=== PATIENT | male | born 1945 | race Caucasian/White ===

== ENCOUNTER → 2016-10-12 | Outpatient (CLI) | payer MEDICARE ==
[2016-10-12 12:58] LABS: Blood Urea Nitrogen 32 mg/dL (9-20); Non-African American GFR(MDRD) 55 (>60 ml/min/1.73 sqM)
--- NOTE | 2016-10-12 14:25 | CT ---
EXAMINATION TYPE: CT chest w con DATE OF EXAM: 10/12/2016 COMPARISON: CT chest 01/26/2015 HISTORY: Shortness of breath CT DLP: 733 mGycm Automated exposure control for dose reduction was used. CONTRAST: CT scan of the chest is performed with IV Contrast, patient injected with 100 ml mL of Visipaque 320. FINDINGS: LUNGS: The lungs are stable, there is no change in the nodules identified. There is no pleural effu gabriele or pneumothorax seen. The tracheobronchial tree is patent. MEDIASTINUM: There are no greater than 1 cm hilar or mediastinal lymph nodes. Leads are present withi n the heart. There are coronary artery calcifications. No pericardial effusion is seen. AORTA: No additional significant abnormality is seen. OTHER: Gallstones are noted incidentally. The liver shows low attenuation. Multiple cysts associated with the kidneys. IMPRESSION: Stable benign pulmonary nodules. Coronary artery disease.
== END | disposition home or self-care (01) ==
LOC: RADCTMAIN 11:34
PROVIDERS: ATTEND Internal Medicine Critical Care Medicine
DX: R91.8 Other nonspecific abnormal finding of lung field (principal)
CPT/HCPCS: 82565; 84520; 71260; 36415; Q9967

== ENCOUNTER 2017-05-11 10:58 | Day surgery (SDC) | payer MEDICARE ==
[2017-05-09 11:39] VITALS: BMI 34.7
[~2017-05-11 10:58] MED LIST: ALBUTEROL NEB (CONC) 2.5 MG/0.5 ML INHALATION ONE; ATROPINE SULFATE 0.4 MG/ML 1 ML VIAL IM ONE; LACTATED RINGERS 1,000 ML IV ONE; LACTATED RINGERS 1,000 ML IV SCH; LIDOCAINE 1% 20 ML VIAL (10MG/ML) FOR IV START INTRADERMA PRN; LIDOCAINE 2% (PF) 20 MG/ML 2 ML AMP INHALATION ONE; Pre Op ABX Message 1 EACH MISC MISCELLANE ONE
[2017-05-11 11:18] VITALS: TEMP 98
[2017-05-11 11:31] LABS: Glucose,Whole Blood 174 mg/dL (75-99)
[2017-05-11] MEDS ORDERED: GLYCOPYRROLATE 0.2 MG/ML 2 ML VIAL ONE (11:58)
[2017-05-11] MEDS ORDERED: PROPOFOL 10 MG/ML 20 ML VIAL IV ONE (11:58)
[2017-05-11] MEDS ORDERED: KETAMINE 10 MG/ML 20 ML VIAL ONE (11:58)
[2017-05-11] MEDS ORDERED: LIDOCAINE 1% INJ 10MG/ML (20 ML MDV) ONE (11:58)
[2017-05-11] MEDS ORDERED: LIDOCAINE 2% INJ 20 MG/ML INTRATRACH ONE ×2 (12:05→12:15)
[2017-05-11 13:04] VITALS: BP 110/78; PULSE 79; RESP 18
[2017-05-11 16:48] LABS: Appearance,BF Hazy; Nucleated Cells, Body Fluid 23 /uL; RBC, Body Fluid 11 /uL
[2017-05-11 17:43] LABS: Mononuclear WBC,Body Fluid 81 %; Polynuclear WBC,Body Fluid 19 %; Total Cells Counted,Body Fluid 100
--- NOTE | 2017-05-11 23:07 | PCN ---
PROCEDURE NOTE PROCEDURE: Bronchoscopy airway examination, therapeutic lavage, BAL right middle lobe. PREOP DIAGNOSES: Cough and chest congestion with retained secretions. POSTOP DIAGNOSES: Cough, chest congestion with retained secretions. DESCRIPTION OF PROCEDURE: The patient's procedure was done in room #2 of the [facility]. There was informed consent. There was universal timeout. The CORNER CUTTER MACHINE OPERATOR provided unconscious sedation and General anesthesia. The procedure was done by Dr. Ho and Dr. Rasmussen. After the patient was adequately sedated and being fully monitored, the bronchoscope was inserted in the right nostril. It passed through the right nasopharynx into the oropharynx. The hypopharynx was identified and topicalized. There were some secretions noted in the hypopharynx. After topicalization, the bronchoscope was placed through the glottic opening into the trachea. The trachea appeared normal. The hypopharyngeal structures including anterior commissure, true cords, false cords, arytenoids, piriform sinuses, right and left vallecula and epiglottis all appeared normal. The trachea was normal as mentioned above. Trachea dl was sharp. The right and left mainstem were topicalized. There were some purulent secretions noted throughout. They were noted in the lower lobes bilaterally. The right upper lobe and its 3 segments, right middle lobe and its 2 segments, right lower lobe and its 5 segments, left upper lobe proper and its 2 segments, the lingula and its two segments and the left lower lobe and its 4 segments all had findings of diffuse mild to moderate bronchitis. There were purulent secretions noted throughout. There was no dominant mass or tumor. There was no bleeding. No foreign body. The patient's secretions were suctioned with the assistance of saline. The bronchoscope was wedged into the right middle lobe. The BAL took place. There was no immediate complication. The patient tolerated the procedure well. The bronchoscope was withdrawn. The patient will be recovered. Specimens were sent to the laboratory for analysis. MMODL / IJN: [id number] /
== END 2017-05-11 13:22 | disposition home or self-care (01) ==
LOC: ORWHC2ENDO 10:58
PROVIDERS: ATTEND Internal Medicine Critical Care Medicine
DX: J40 Bronchitis, not specified as acute or chronic (principal); J45.909 Unspecified asthma, uncomplicated; E78.5 Hyperlipidemia, unspecified; E03.8 Other specified hypothyroidism; N40.0 Benign prostatic hyperplasia without lower urinary tract symptoms; M10.9 Gout, unspecified; I10 Essential (primary) hypertension; E11.9 Type 2 diabetes mellitus without complications; Z79.84 Long term (current) use of oral hypoglycemic drugs; G47.30 Sleep apnea, unspecified; Z95.0 Presence of cardiac pacemaker; I49.5 Sick sinus syndrome; Z79.82 Long term (current) use of aspirin; Z79.899 Other long term (current) drug therapy; Z87.891 Personal history of nicotine dependence; Z91.018 Allergy to other foods; Z91.09 Other allergy status, other than to drugs and biological substances
CPT/HCPCS: 94640; 87798 ×3; 87496; 87498; 87529 ×2; 88108; 88305; 89050; 87252; 87502; 87634; 87070; 87205; 87116; 87102; 87077; 87186; 87206; 31624; J2001 ×3; J0461; J2704

== ENCOUNTER → 2018-05-01 | Day surgery (SDC) | payer MEDICARE ==
[2018-04-24 13:41] VITALS: BMI 32.2
[~2018-05-01] MED LIST changes: -ALBUTEROL NEB (CONC) 2.5 MG/0.5 ML INHALATION ONE; +ALLOPURINOL 300 MG TAB PO SCH; +ALPRAZolam 0.25 MG TAB PO PRN; +ALPRAZolam 0.5 MG TAB PO PRN; +ASPIRIN 325 MG TAB PO STA; +ASPIRIN 81 MG PO SCH; +ATORVASTATIN 80 MG TAB PO STA; -ATROPINE SULFATE 0.4 MG/ML 1 ML VIAL IM ONE; +HEPARIN SODIUM 1,000 UN/ML (10ML VL) IV ONE; +HEPARIN SODIUM 1,000 UN/ML (10ML VL) ONE; +IOPAMIDOL-370 125ML BTL INJ ONE; +IOPAMIDOL-370 50ML BTL INJ ONE; -LACTATED RINGERS 1,000 ML IV ONE; -LACTATED RINGERS 1,000 ML IV SCH; +LEVOTHYROXINE 75 MCG TAB PO SCH; -LIDOCAINE 1% 20 ML VIAL (10MG/ML) FOR IV START INTRADERMA PRN; +LIDOCAINE 1% INJ 10MG/ML (20 ML MDV) ONE; +LIDOCAINE 1% INJ 10MG/ML (20 ML MDV) SQ ONE; -LIDOCAINE 2% (PF) 20 MG/ML 2 ML AMP INHALATION ONE; +NITROGLYCERIN SL TABS 0.4 MG TAB SUBLINGUAL PRN; +NON-FORMULARY DRUG (Losartan Potassium [Losartan Potassium] 100 MG) PO SCH; +NON-FORMULARY DRUG (Simvastatin 40 MG) PO SCH; +OXYBUTYNIN CHLORIDE 5 MG TAB PO PRN; -Pre Op ABX Message 1 EACH MISC MISCELLANE ONE; +RX INFO: IV CONTRAST WAS GIVEN 1 EACH MISC MISCELLANE PRN; +SODIUM CHLORIDE 0.9% 1,000 ML IV ONE; +SODIUM CHLORIDE 0.9% 1,000 ML IV SCH; +SODIUM CHLORIDE 0.9% 1,000 ML in EMPTY BAG 1 BAG IV ONE; +VERAPAMIL 2.5 MG/ML 2 ML AMP ONE; +VERAPAMIL SYRINGE (5 MG/10 ML) INTRAARTER ONE; +fentaNYL (PF) 50 MCG/ML 2 ML AMP IVP ONE; +fentaNYL (PF) 50 MCG/ML 2 ML AMP ONE; +glipiZIDE 5 MG TAB PO SCH
[2018-05-01 08:36] LABS: Glucose,Whole Blood 122 mg/dL (75-99)
[2018-05-01 08:52] VITALS: TEMP 98.6
[2018-05-01 12:02] VITALS: RESP 12
--- NOTE | 2018-05-01 12:22 | CC ---
CARDIAC CATHETERIZATION REPORT Mr. Lucas is a 72-year-old male with known history of hypertension, hyperlipidemia, diabetes mellitus, history of permanent pacemaker implantation, who recently has been complaining of symptoms of fatigue and dyspnea, had an abnormal myocardial perfusion imaging. In view of that, recommendation was made regarding cardiac catheterization. The procedure as well as the risks and the complication were discussed with the patient who is in full understanding and agreement. PROCEDURE: Patient was brought to the circus laborer in a fasting semi-sedated state after receiving fentanyl and Benadryl and achieving moderate conscious sedated state. Using Xylocaine anesthesia, in the Seldinger technique, a 6-Burkinan sheath was introduced in the right radial artery. Selective left coronary angiography was performed using 5-Burkinan 3.5 bend left Aretha catheter. Images of the left coronary system were obtained. Attempt to selectively cannulate the right coronary artery using a 5-Burkinan 3.5 bend right Aretha, 4 bend right Aretha and 6-Burkinan David catheter were unsuccessful. Following that, a 5-Burkinan tight pigtail catheter was introduced in the left ventricle and an CUBAN view of the ascending aorta was performed. Following that, non selective images of the right coronary artery using a 5-Burkinan multipurpose non selective images were obtained. Following that, catheter and sheaths were removed. Hemostasis was obtained with deployment of a TR band. There was no immediate complication. The patient was returned to his room in stable condition. FINDINGS: FLUOROSCOPY: There was calcification involving the left main coronary artery and the proximal left anterior descending artery. LEFT MAIN: This is a short size vessel trifurcating left circumflex, left anterior descending artery. Left main coronary artery has no evidence of high-grade stenosis. LEFT ANTERIOR DESCENDING ARTERY: This is a large-sized vessel reaching toward the apex with a wraparound apex segment giving rise to a moderately sized diagonal branch. The left anterior descending artery as well as branches have no evidence of high- grade stenosis, RAMUS INTERMEDIUS: This is a small to moderate sized vessel that has no evidence of high-grade stenosis. LEFT CIRCUMFLEX: This is a dominant vessel bifurcating distally PDA posterolateral segment and branches. The left circumflex proximally has 20% to 30% plaque. The rest of the vessel has no high-grade stenosis. RIGHT CORONARY ARTERY: This vessel appears to be small and nondominant, has a posterior takeoff could not be cannulated selectively, but that has no evidence of high- grade stenosis. LEFT VENTRICULOGRAM: The left ventriculogram was not performed. AORTOGRAM: Aortogram was performed in the CUBAN view and revealed a tricuspid aortic valve with no significant aortic regurgitation. CONCLUSION: 1. Calcified left main and left anterior descending artery. 2. Mild disease in left circumflex. RECOMMENDATION: In view of finding anatomy, I recommend continue medical therapy with aggressive coronary risk modifications that have been initiated. Those findings and recommendation were discussed with the patient his family who are in full understanding and agreement. DURATION OF PROCEDURE: 65 minutes. MMODL / IJN: [id number] / MTDBlaine
[2018-05-01 14:48] VITALS: BP 135/73; PULSE 55
== END | disposition home or self-care (01) ==
LOC: CATHCVL 07:43
PROVIDERS: ATTEND Internal Medicine Interventional Cardiology
DX: R94.39 Abnormal result of other cardiovascular function study (principal); I25.10 Atherosclerotic heart disease of native coronary artery without angina pectoris; I10 Essential (primary) hypertension; E11.9 Type 2 diabetes mellitus without complications; E78.2 Mixed hyperlipidemia; F17.210 Nicotine dependence, cigarettes, uncomplicated; Z95.0 Presence of cardiac pacemaker; Z79.82 Long term (current) use of aspirin; Z79.84 Long term (current) use of oral hypoglycemic drugs; Z79.890 Hormone replacement therapy; Z79.899 Other long term (current) drug therapy; Z82.49 Family history of ischemic heart disease and other diseases of the circulatory system
CPT/HCPCS: 93454; 93567; C1769; C1894; J2001; J3010; J1644; Q9967 ×2

== ENCOUNTER → 2018-05-05 | Outpatient (CLI) | payer MEDICARE ==
[2018-05-05 16:28] LABS: Anion Gap 4.8 mmol/L (4.00-12.00); Calcium 9.8 mg/dL (8.7-10.3); Carbon Dioxide 29.2 mmol/L (21.6-31.8); Potassium 4.9 mmol/L (3.5-5.5)
== END | disposition home or self-care (01) ==
LOC: LABWHC1 08:20
PROVIDERS: ATTEND Internal Medicine Interventional Cardiology
DX: I25.10 Atherosclerotic heart disease of native coronary artery without angina pectoris (principal)
CPT/HCPCS: 36415; 80048

== ENCOUNTER → 2018-08-16 | Outpatient (CLI) | payer MEDICARE ==
--- NOTE | 2018-08-16 16:09 | CT ---
EXAMINATION TYPE: CT lumbar spine wo con DATE OF EXAM: 08/16/2018 COMPARISON: None HISTORY: 72-year-old male Lumbago with sciatica, right side TECHNIQUE: Contiguous axial scanning of the lumbar spine without IV contrast. Coronal and sagittal re constructions performed. CT DLP: 2242.7 mGycm Automated exposure control for dose reduction was used. FINDINGS: Multiple bilateral renal cysts measuring up to at least 4.8 cm. Moderate prostatic calcifications thr oughout the abdominal aorta and iliac arteries. Mild degenerative change at the SI joints. Degenerated levoconvex curvature of the lumbar spine. Vertebral body heights are preserved and alignment is maintained. Mild multilevel degenerative disc disease with bulging discs at multiple levels. Facet arthropathy mid to lower lumbar spine. Mild narrowing of the spinal canal at L3-L4 and L4-L5 from bulging discs. At L4-L5, there is disc osteophyte complex eccentric towards the left. This may abut the traversing l eft L5 nerve root. Along with facet arthropathy, contribute to moderate left neuroforaminal stenosis. . At L3-L4, bulging disc and facet arthropathy contributes to mild right neural foraminal stenosis. IMPRESSION: 1. NO VERTEBRAL COMPRESSION COLLAPSE OR MALALIGNMENT. THERE IS [id number] MULTILEVEL DEGENERATI VE DISC DISEASE AND SCATTERED FACET ARTHROPATHY AND A DEGENERATED LEVOCONVEX SCOLIOTIC CURVATURE. 2. MILD NARROWING OF THE SPINAL CANAL FROM DISC BULGING AT L3-L4 AND L4-L5. 3. AT L4-L5, DISC OSTEOPHYTE COMPLEX ECCENTRIC TOWARDS THE LEFT MAY ABUT THE TRAVERSING LEFT L5 NERVE ROOT. THERE IS ALSO A MODERATE LEFT NEUROFORAMINAL STENOSIS AT THIS LEVEL.
== END | disposition home or self-care (01) ==
LOC: RADCTMAIN 12:20
PROVIDERS: ATTEND Internal Medicine
DX: M48.061 Spinal stenosis, lumbar region without neurogenic claudication (principal); M51.26 Other intervertebral disc displacement, lumbar region; M51.36 Other intervertebral disc degeneration, lumbar region; M46.96 Unspecified inflammatory spondylopathy, lumbar region; M41.86 Other forms of scoliosis, lumbar region
CPT/HCPCS: 72131

== ENCOUNTER → 2019-02-18 | Outpatient (CLI) | payer MEDICARE ==
--- NOTE | 2019-02-18 11:15 | XR ---
EXAM TYPE: LUMBAR SPINE X RAY SERIES COMPARISON: 08/16/2018 HISTORY: Pain TECHNIQUE: 4 views are submitted. FINDINGS: Alignment is anatomic. The pedicles are intact. The transverse processes are intact. There is scol iosis of the spine with multilevel hypertrophic degenerative changes. Diffuse osteopenia. Vascular ca lcifications noted and there is multilevel facet arthropathy. IMPRESSION: 1. Multilevel degenerative disc disease and hypertrophic changes
== END | disposition home or self-care (01) ==
LOC: RADXRMAIN 09:12
PROVIDERS: ATTEND Chiropractor
DX: M51.36 Other intervertebral disc degeneration, lumbar region (principal)
CPT/HCPCS: 72110

== ENCOUNTER → 2020-03-02 | Outpatient (CLI) | payer MEDICARE ==
--- NOTE | 2020-03-02 16:08 | US ---
EXAMINATION TYPE: US kidneys/renal and bladder DATE OF EXAM: 03/02/2020 COMPARISON: NONE CLINICAL HISTORY: 74-year-old male R10.9 LT FLANK PAIN. Left side pain. No hx renal stones. History of prostate cancer with removal. TECHNIQUE: Multiple sonographic images of the kidneys and bladder are obtained. FINDINGS: EXAM MEASUREMENTS: Right Kidney: 12.6 x 5.2 x 6.0 cm Left Kidney: 13.0 x 5.3 x 6.0 cm Right Kidney: Multiple cystic appearing lesions seen throughout kidney. Largest two measured. 1= lat = 4.0 x 4.7 x 4.2 cm. 2- medial = 6.1 x 4.3 x 4.5 cm. Left Kidney: Multiple cystic appearing lesions seen throughout kidney. Largest two measured. 1- lat= 3.1 x 2.7 x 3.0 cm. 2- mid= 3.7 x 3.6 x 4.0 cm. Cortical thinning. No hydronephrosis on either side. Bladder: Under distention limits evaluation. Bilateral Jets not seen IMPRESSION: Numerous bilateral renal cysts measuring up to 6.1 cm on the right and 3.7 cm on the left. No hydrone phrosis.
== END | disposition home or self-care (01) ==
LOC: RADUSWWP 14:05
PROVIDERS: ATTEND Internal Medicine
DX: N28.1 Cyst of kidney, acquired (principal)
CPT/HCPCS: 76770

== ENCOUNTER 2020-11-19 06:10 | Day surgery (SDC) | payer MEDICARE, OTHER ==
[2020-11-17 11:49] VITALS: BMI 29.8
[~2020-11-19 06:10] MED LIST changes: -ALLOPURINOL 300 MG TAB PO SCH; -ALPRAZolam 0.25 MG TAB PO PRN; -ALPRAZolam 0.5 MG TAB PO PRN; -ASPIRIN 325 MG TAB PO STA; -ASPIRIN 81 MG PO SCH; -ATORVASTATIN 80 MG TAB PO STA; -HEPARIN SODIUM 1,000 UN/ML (10ML VL) IV ONE; -HEPARIN SODIUM 1,000 UN/ML (10ML VL) ONE; -IOPAMIDOL-370 125ML BTL INJ ONE; -IOPAMIDOL-370 50ML BTL INJ ONE; +LACTATED RINGERS 1,000 ML IV SCH; -LEVOTHYROXINE 75 MCG TAB PO SCH; +LIDOCAINE 1% (10MG/ML) FOR IV START INTRADERMA PRN; -LIDOCAINE 1% INJ 10MG/ML (20 ML MDV) ONE; -LIDOCAINE 1% INJ 10MG/ML (20 ML MDV) SQ ONE; -NITROGLYCERIN SL TABS 0.4 MG TAB SUBLINGUAL PRN; -NON-FORMULARY DRUG (Losartan Potassium [Losartan Potassium] 100 MG) PO SCH; -NON-FORMULARY DRUG (Simvastatin 40 MG) PO SCH; -OXYBUTYNIN CHLORIDE 5 MG TAB PO PRN; -RX INFO: IV CONTRAST WAS GIVEN 1 EACH MISC MISCELLANE PRN; -SODIUM CHLORIDE 0.9% 1,000 ML IV ONE; -SODIUM CHLORIDE 0.9% 1,000 ML IV SCH; -SODIUM CHLORIDE 0.9% 1,000 ML in EMPTY BAG 1 BAG IV ONE; -VERAPAMIL 2.5 MG/ML 2 ML AMP ONE; -VERAPAMIL SYRINGE (5 MG/10 ML) INTRAARTER ONE; -fentaNYL (PF) 50 MCG/ML 2 ML AMP IVP ONE; -fentaNYL (PF) 50 MCG/ML 2 ML AMP ONE; -glipiZIDE 5 MG TAB PO SCH
[2020-11-19] MEDS ORDERED: LACTATED RINGERS 1,000 ML IV ONE (06:41)
[2020-11-19 06:43] VITALS: TEMP 97.8
[2020-11-19] MEDS ORDERED: PROPOFOL 10 MG/ML 20 ML VIAL IV ONE (07:03)
[2020-11-19 07:29] VITALS: RESP 16
[2020-11-19 07:43] VITALS: BP 114/65; PULSE 50
[2020-11-19 09:21] LABS: HGB 14.4 gm/dL (13.0-17.5); MCH 30.9 pg (25.0-35.0); MCHC 33.4 g/dL (31.0-37.0); MCV 92.5 fL (80.0-100.0); Mean Platelet Volume 9.2; Platelet Count 224 k/uL (150-450); RBC 4.65 m/uL (4.30-5.90); RDW 13.7 % (11.5-15.5); Reticulocyte % 1.2 % (0.5-2.0); WBC 15.7 k/uL (3.8-10.6)
[2020-11-19 09:59] LABS: Band Neutrophils % 1 %; Basophils # (M) 0.16 k/uL (0-0.2); Eosinophils # (M) 0.63 k/uL (0-0.7); Lymphocytes # (M) 2.04 k/uL (1.0-4.8); Metamyelocytes # (M) 0.47 k/uL (0); Metamyelocytes % 3 %; Monocytes # (M) 0.63 k/uL (0-1.0); Myelocytes # (M) 0.16 k/uL (0); Myelocytes % 1 %; Neutrophils % (M) 74 %; Nucleated Red Blood Cells 0 /100 WBC (0-0); Total Cells Counted 200
--- NOTE | 2020-11-19 10:25 | PCN ---
PROCEDURE NOTE DATE OF PROCEDURE: 11/19/2020. PREOP DIAGNOSIS: CML. POSTOP DIAGNOSIS: CML. ANESTHESIA: Local with IV systemic sedation. DETAILS: Utilizing sterile technique, the skin overlying the right iliac crest was prepared with Betadine and alcohol. After adequate sterile draping, systemic sedation and local anesthesia with 1% lidocaine, a size 11 4 inch Jamshidi needle was utilized to access the periosteum with ease. A total of 15 mL of aspirate and 4 mm bone core biopsies were obtained. The patient tolerated the procedure very well. There was no immediate procedure related complication. TOTAL BLOOD LOSS: Less than 1 mL. RESULTS: Pending. MMODL / IJN: [id number] /
== END 2020-11-19 07:57 | disposition home or self-care (01) ==
LOC: OR 06:10
PROVIDERS: ATTEND Internal Medicine Hematology & Oncology
DX: D75.89 Other specified diseases of blood and blood-forming organs (principal); D72.829 Elevated white blood cell count, unspecified; M10.9 Gout, unspecified; E11.9 Type 2 diabetes mellitus without complications; I10 Essential (primary) hypertension; Z86.16 Personal history of COVID-19; M25.60 Stiffness of unspecified joint, not elsewhere classified; E03.9 Hypothyroidism, unspecified; Z85.46 Personal history of malignant neoplasm of prostate; I49.9 Cardiac arrhythmia, unspecified; Z87.891 Personal history of nicotine dependence; Z95.0 Presence of cardiac pacemaker; Z90.79 Acquired absence of other genital organ(s); Z98.890 Other specified postprocedural states; Z80.3 Family history of malignant neoplasm of breast; Z80.49 Family history of malignant neoplasm of other genital organs; Z86.19 Personal history of other infectious and parasitic diseases; Z79.84 Long term (current) use of oral hypoglycemic drugs; Z79.82 Long term (current) use of aspirin; Z79.890 Hormone replacement therapy; Z79.899 Other long term (current) drug therapy
CPT/HCPCS: 85025; 85045; 38222; J2704

== ENCOUNTER → 2021-01-01 | Outpatient (CLI) | payer OTHER | END | disposition home or self-care (01) | LOC: LABWHC1 09:31 | PROVIDERS: ATTEND Nurse Practitioner Adult Health | DX: C92.10 Chronic myeloid leukemia, BCR/ABL-positive, not having achieved remission (principal); I45.10 Unspecified right bundle-branch block; M10.9 Gout, unspecified; E11.9 Type 2 diabetes mellitus without complications; R94.31 Abnormal electrocardiogram [ECG] [EKG]; Z71.3 Dietary counseling and surveillance | CPT/HCPCS: 36415; 93005 ==

== ENCOUNTER → 2022-03-11 | Outpatient (CLI) | payer MEDICARE | END | disposition home or self-care (01) | LOC: LABWHC1 08:57 | PROVIDERS: ATTEND Otolaryngology | DX: J30.89 Other allergic rhinitis (principal) | CPT/HCPCS: 36415; 86001 ==

== ENCOUNTER 2022-05-18 14:28 | Inpatient (IN) | payer MEDICARE ==
[2022-05-18] MEDS ORDERED: ACETAMINOPHEN TAB 500 MG TAB PO STA (14:37)
[2022-05-18] MEDS ORDERED: IBUPROFEN 600 MG TAB PO STA (14:37)
--- NOTE | 2022-05-18 14:41 | ED ---
General Adult HPI - General Chief complaint: Altered Mental Status Stated complaint: ARIELLE,AMS Time Seen by Provider: 05/18/22 14:30 Source: patient, EMS, RN notes reviewed, old records reviewed Mode of arrival: ambulatory Limitations: no limitations - History of Present Illness Initial comments: This is a 76-year-old male who was sent in via EMS because of altered mental status and difficulty breathing. On initial assessment patient had 103.1 fever. Patient has no complete pain however he is altered. According to EMS he started having difficulty breathing a couple days ago was started on antibiotic for bronchitis. However continues to get worse and is now altered where he was not altered before. There is no family member with him so no further history can be obtained at this time - Related Data Home Medications Medication Instructions Recorded Confirmed Aspirin 81 mg PO DAILY 01/31/14 11/17/20 Losartan Potassium 100 mg PO QAM 01/31/14 11/17/20 Simvastatin [Zocor] 40 mg PO HS 01/31/14 11/17/20 allopurinoL [Zyloprim] 300 mg PO DAILY 01/31/14 11/17/20 metFORMIN HCL [Glucophage] 500 mg PO DAILY 01/31/14 11/17/20 Oxybutynin Chloride [Ditropan] 5 mg PO BID PRN 09/12/14 11/17/20 Levothyroxine Sodium [Synthroid] 75 mcg PO QAM 04/24/18 11/17/20 glipiZIDE [Glucotrol] 5 mg PO TID-W/MEALS 04/24/18 11/17/20 Cholecalciferol [Vitamin D3 (25 25 mcg PO DAILY 11/17/20 11/17/20 Mcg = 1000 Iu)] Montelukast Sodium [Singulair] 10 mg PO HS 11/17/20 11/17/20 atenoloL [Tenormin] 25 mg PO QAM 11/17/20 11/17/20 Allergies Allergy/AdvReac Type Severity Reaction Status Date / Time wheat Allergy CONGESTION Verified 05/18/22 14:37 yeast, dried [yeast] Allergy CONGESTION Verified 05/18/22 14:37 mold Allergy Unknown Uncoded 05/18/22 14:37 Review of Systems ROS Statement: Those systems with pertinent positive or pertinent negative responses have been documented in the HPI. ROS Other: All systems not noted in ROS Statement are negative. Past Medical History Past Medical History: Cancer, Diabetes Mellitus, GERD/Reflux, Hyperlipidemia, Hypertension, Osteoarthritis (OA), Prostate Disorder, Sleep Apnea/CPAP/BIPAP, Thyroid Disorder Additional Past Medical History / Comment(s): CML, gout, no longer needs cpap,hx prostate cancer 2007,rinary leakage History of Any Multi-Drug Resistant Organisms: None Reported Past Surgical History: Pacemaker, Prostate Surgery Additional Past Surgical History / Comment(s): uvula surgery for sleep apnea, left cataract,prostatectomy,bladder mesh surgery after prostate surgery Past Anesthesia/Blood Transfusion Reactions: No Reported Reaction Type of Cardiac Device: Permanent Pacemaker Device Placement Date:: 11/20/14 Past Psychological History: No Psychological Hx Reported Smoking Status: Former smoker Past Alcohol Use History: None Reported Past Drug Use History: None Reported - Past Family History Mother Family Medical History: Cancer Additional Family Medical History / Comment(s): breast Sister(s) Family Medical History: Cancer General Exam - General Exam Comments Initial Comments: GENERAL: Patient is well-developed and well-nourished. Patient is nontoxic and well- hydrated and is in mild distress. ENT: Neck is soft and supple. No significant lymphadenopathy is noted. Oropharynx is clear. Moist mucous membranes. Neck has full range of motion without eliciting any pain. EYES: The sclera were anicteric and conjunctiva were pink and moist. Extraocular movements were intact and pupils were equal round and reactive to light. Ey elids were unremarkable. PULMONARY: Poor respiratory effort I do not hear any obvious but he is not taking very deep breaths at this time CARDIOVASCULAR: There is a regular rate and rhythm without any murmurs gallops or rubs. ABDOMEN: Soft and nontender with normal bowel sounds. SKIN: Skin is clear with no lesions or rashes and otherwise unremarkable. NEUROLOGIC: Patient is alert and oriented 2. Cranial nerves II through XII are grossly intact. Motor and sensory are also intact. Normal speech, volume and content. Symmetrical smile. MUSCULOSKELETAL: Normal extremities with adequate strength and full range of motion. No lower extremity swelling or edema. No calf tenderness. LYMPHATICS: No significant lymphadenopathy is noted PSYCHIATRIC: Normal psychiatric evaluation. Limitations: no limitations Course Vital Signs 05/18/22 14:32 Temperature 103.8 F H Pulse Rate 92 Blood Pressure 120/49 O2 Sat by Pulse 99 Oximetry Medical Decision Making - Medical Decision Making EKG was interpreted by myself shows sinus rhythm at 90 bpm CO interval is 224 QRS 146 QT interval is 358 QTC is 406. Patient's EKG shows no ST segment elevation or depression. Patient does have a right bundle branch block. Was pt. sent in by a medical professional or institution (, SMITH, CAMPAIGN ASSISTANT, urgent care, hospital, or care home...) When possible be specific @ -No Did you speak to anyone other than the patient for history (EMS, parent, family, police, friend...)? What history was obtained from this source @ -No Did you review nursing and triage notes (agree or disagree)? Why? @ -I reviewed and agree with nursing and triage notes Were old charts reviewed (outside hosp., previous admission, EMS record, old EKG, old radiological studies, urgent care reports/EKG's, care home records)? Report findings @ - brought some paperwork from a prior hospital visit which I reviewed Differential Diagnosis (chest pain, altered mental status, abdominal pain women, abdominal pain men, vaginal bleeding, weakness, fever, dyspnea, syncope, headache, dizziness, GI bleed, back pain, seizure, CVA, palpatations, mental health, musculoskeletal)? @ -Differential Seizure: Recurrent seizure disorder, febrile seizure, alcohol withdrawal, stimulants, meningitis, encephalitis, intercranial hemorrhage, intracranial tumor, stroke, eclampsia, thyrotoxicosis, hypocalcemia, hyponatremia, hypernatremia, hypomagnesemia, psychogenic, this is not meant to be an all-inclusive list. EKG interpreted by me (3pts min.). @ -As above X-rays interpreted by me (1pt min.). @ -Chest x-ray was interpreted by myself I see no obvious infiltrate CT interpreted by me (1pt min.). @ -None done U/S interpreted by me (1pt. min.). @ -None done What testing was considered but not performed or refused? (CT, X-rays, U/S, labs)? Why? @ -None What meds were considered but not given or refused? Why? @ -None Did you discuss the management of the patient with other professionals (professionals i.e. SMITH Pollock, CAMPAIGN ASSISTANT, lab, RT, psych nurse, healthcare social worker, jig and fixture repairer, teacher, nuclear security officer, employment case manager)? Give summary @ -I spoke with Dr. Connelly he agreed to admit the patient Was smoking cessation discussed for >3mins.? @ -No Was critical care preformed (if so, how long)? @ -No Were there social determinants of health that impacted care today? How? (Homelessness, low income, unemployed, alcoholism, drug addiction, transportation, low edu. Level, literacy, decrease access to med. care, usp, rehab)? @ -No Was there de-escalation of care discussed even if they declined (Discuss DNR or withdrawal of care, Hospice)? DNR status @ -No What co-morbidities impacted this encounter? (DM, HTN, Smoking, COPD, CAD, Cancer, CVA, ARF, Chemo, Hep., AIDS, mental health diagnosis, sleep apnea, morbid obesity)? @ -None Was patient admitted / discharged? Hospital course, mention meds given and route, prescriptions, significant lab abnormalities, going to OR and other pertinent info. @ -Patient came in with 103 fever was altered mentally and was stating he had difficulty breathing. Patient was given Tylenol Motrin for the fever and the was closer to his baseline but according to the not quite at his baseline. Patient stated he felt much better any shortness of breath had improved Undiagnosed new problem with uncertain prognosis? @ -No Drug Therapy requiring intensive monitoring for toxicity (Heparin, Nitro, Insulin, Cardizem)? @ -No Were any procedures done? @ -No Diagnosis/symptom? @ -Dyspnea Acute, or Chronic, or Acute on Chronic? @ -Acute Uncomplicated (without systemic symptoms) or Complicated (systemic symptoms)? @ -Complicated Side effects of treatment? @ -No Exacerbation, Progression, or Severe Exacerbation? @ -No Poses a threat to life or bodily function? How? (Chest pain, [place], [place], pneumonia, PE, COPD, DKA, ARF, appy, cholecystitis, CVA, Diverticulitis, Homicidal, Suicidal, threat to staff... and all critical care pts) @ -No Diagnosis/symptom? @ -Fever of unknown origin Acute, or Chronic, or Acute on Chronic? @ -Acute Uncomplicated (without systemic symptoms) or Complicated (systemic symptoms)? @ -Complicated Side effects of treatment? @ -none Exacerbation, Progression, or Severe Exacerbation] @ -no Poses a threat to life or bodily function? @ -no Diagnosis/symptom? @ -Altered mental status Acute, or Chronic, or Acute on Chronic? @ -Acute Uncomplicated (without systemic symptoms) or Complicated (systemic symptoms)? @ -Complicated Side effects of treatment? @ -none Exacerbation, Progression, or Severe Exacerbation] @ -no Poses a threat to life or bodily function? @ -no Dr. Connelly wanted the patient to start on Levaquin so started on Levaquin and continued on the floor. Dr. Connelly mention that the patient was possibly having some gallbladder issues a few days ago I went back in and evaluated the patient had no abdominal tenderness and denied any pain. - Lab Data Result diagrams: 05/18/22 14:57 05/18/22 14:57 Lab Results 05/18/22 05/18/22 05/18/22 Range/Units 14:57 14:57 14:57 WBC 6.0 (3.8-10.6) k/uL RBC 3.22 L (4.30-5.90) m/uL Hgb 10.1 L (13.0-17.5) gm/dL Hct 30.3 L (39.0-53.0) % MCV 94.2 (80.0-100.0) fL MCH 31.5 (25.0-35.0) pg MCHC 33.5 (31.0-37.0) g/dL RDW 13.2 (11.5-15.5) % Plt Count 167 (150-450) k/uL MPV 8.4 Neutrophils % 93 % Lymphocytes % 5 % Monocytes % 1 % Eosinophils % 1 % Basophils % 0 % Neutrophils # 5.6 (1.3-7.7) k/uL Lymphocytes # 0.3 L (1.0-4.8) k/uL Monocytes # 0.1 (0-1.0) k/uL Eosinophils # 0.0 (0-0.7) k/uL Basophils # 0.0 (0-0.2) k/uL PT 11.0 (9.0-12.0) sec INR 1.0 (<1.2) APTT 21.4 L (22.0-30.0) sec Sodium 138 (137-145) mmol/L Potassium 4.3 (3.5-5.1) mmol/L Chloride 106 (98-107) mmol/L Carbon Dioxide 25 (22-30) mmol/L Anion Gap 7 mmol/L BUN 29 H (9-20) mg/dL Creatinine 2.14 H (0.66-1.25) mg/dL Est GFR (CKD-EPI)AfAm 34 (>60 ml/min/1.73 sqM) Est GFR (CKD-EPI)NonAf 29 (>60 ml/min/1.73 sqM) Glucose 134 H (74-99) mg/dL Plasma Lactic Acid Lonnie (0.7-2.0) mmol/L Calcium 8.6 (8.4-10.2) mg/dL Total Bilirubin 1.1 (0.2-1.3) mg/dL AST 22 (17-59) U/L ALT 17 (4-49) U/L Alkaline Phosphatase 90 (38-126) U/L Total Protein 5.9 L (6.3-8.2) g/dL Albumin 3.3 L (3.5-5.0) g/dL Urine Color Urine Appearance (Clear) Urine pH (5.0-8.0) Ur Specific Llewellyn (1.001-1.035) Urine Protein (Negative) Urine Glucose (UA) (Negative) Urine Ketones (Negative) Urine Blood (Negative) Urine Nitrite (Negative) Urine Bilirubin (Negative) Urine Urobilinogen (<2.0) mg/dL Ur Leukocyte Esterase (Negative) Urine RBC (0-5) /hpf Urine WBC (0-5) /hpf Ur Squamous Epith Cells (0-4) /hpf Amorphous Sediment (None) /hpf Urine Bacteria (None) /hpf Urine Mucus (None) /hpf Influenza Type A (PCR) (Not Detectd) Influenza Type B (PCR) (Not Detectd) RSV (PCR) (Not Detectd) SARS-CoV-2 (PCR) (Not Detectd) 05/18/22 05/18/22 05/18/22 Range/Units 14:57 15:05 16:05 WBC (3.8-10.6) k/uL RBC (4.30-5.90) m/uL Hgb (13.0-17.5) gm/dL Hct (39.0-53.0) % MCV (80.0-100.0) fL MCH (25.0-35.0) pg MCHC (31.0-37.0) g/dL RDW (11.5-15.5) % Plt Count (150-450) k/uL MPV Neutrophils % % Lymphocytes % % Monocytes % % Eosinophils % % Basophils % % Neutrophils # (1.3-7.7) k/uL Lymphocytes # (1.0-4.8) k/uL Monocytes # (0-1.0) k/uL Eosinophils # (0-0.7) k/uL Basophils # (0-0.2) k/uL PT (9.0-12.0) sec INR (<1.2) APTT (22.0-30.0) sec Sodium (137-145) mmol/L Potassium (3.5-5.1) mmol/L Chloride (98-107) mmol/L Carbon Dioxide (22-30) mmol/L Anion Gap mmol/L BUN (9-20) mg/dL Creatinine (0.66-1.25) mg/dL Est GFR (CKD-EPI)AfAm (>60 ml/min/1.73 sqM) Est GFR (CKD-EPI)NonAf (>60 ml/min/1.73 sqM) Glucose (74-99) mg/dL Plasma Lactic Acid Lonnie 2.5 H* (0.7-2.0) mmol/L Calcium (8.4-10.2) mg/dL Total Bilirubin (0.2-1.3) mg/dL AST (17-59) U/L ALT (4-49) U/L Alkaline Phosphatase (38-126) U/L Total Protein (6.3-8.2) g/dL Albumin (3.5-5.0) g/dL Urine Color Yellow Urine Appearance Cloudy (Clear) Urine pH 5.5 (5.0-8.0) Ur Specific Llewellyn 1.024 (1.001-1.035) Urine Protein 2+ H (Negative) Urine Glucose (UA) Negative (Negative) Urine Ketones Negative (Negative) Urine Blood Small H (Negative) Urine Nitrite Negative (Negative) Urine Bilirubin Negative (Negative) Urine Urobilinogen 3.0 (<2.0) mg/dL Ur Leukocyte Esterase Small H (Negative) Urine RBC 5 (0-5) /hpf Urine WBC 4 (0-5) /hpf Ur Squamous Epith Cells 2 (0-4) /hpf Amorphous Sediment Moderate H (None) /hpf Urine Bacteria Rare H (None) /hpf Urine Mucus Rare H (None) /hpf Influenza Type A (PCR) Not Detected (Not Detectd) Influenza Type B (PCR) Not Detected (Not Detectd) RSV (PCR) Not Detected (Not Detectd) SARS-CoV-2 (PCR) Not Detected (Not Detectd) Disposition Clinical Impression: Dyspnea, Fever of unknown origin, Altered mental status Disposition: ADMITTED IP TO THIS HOSP Referrals: River Connelly MD [Primary Care Provider] - 1-2 days Time of Disposition: 16:57
[2022-05-18] MEDS: SODIUM CHLORIDE 0.9% 500 ML 500 ML IV SCH ×3 (15:07→20:11)
[2022-05-18 15:16] LABS: Basophils % (A) 0 %; Eosinophils % (A) 1 %; HCT 30.3 % (39.0-53.0); HGB 10.1 gm/dL (13.0-17.5); Lymphocytes # (A) 0.3 k/uL (1.0-4.8); Lymphocytes % (A) 5 %; MCH 31.5 pg (25.0-35.0); MCHC 33.5 g/dL (31.0-37.0); MCV 94.2 fL (80.0-100.0); Mean Platelet Volume 8.4; Monocytes # (A) 0.1 k/uL (0-1.0); Monocytes % (A) 1 %; Neutrophils # (A) 5.6 k/uL (1.3-7.7); Neutrophils % (A) 93 %; Platelet Count 167 k/uL (150-450); RBC 3.22 m/uL (4.30-5.90); RDW 13.2 % (11.5-15.5)
[2022-05-18 15:34] LABS: Albumin 3.3 g/dL (3.5-5.0); Calcium 8.6 mg/dL (8.4-10.2); Potassium 4.3 mmol/L (3.5-5.1); Total Bilirubin 1.1 mg/dL (0.2-1.3); Total Protein 5.9 g/dL (6.3-8.2)
--- NOTE | 2022-05-18 15:45 | XR ---
EXAMINATION TYPE: XR chest 2V DATE OF EXAM: 05/18/2022 3:20 PM COMPARISON: Chest radiographs from 12/02/2014 TECHNIQUE: XR chest 2V Frontal and lateral views of the chest. CLINICAL INDICATION:Male, 76 years old with history of Fever; FINDINGS: Lungs/Pleura: Low lung volumes are present. There is no evidence of pleural effusion, focal consolida tion, or pneumothorax. Pulmonary vascularity: Unremarkable. Heart/mediastinum: Cardiomediastinal silhouette is unremarkable. Two lead cardiac conduction device o verlying the left hemithorax with lead tips projecting over the right ventricle and right atrium. Musculoskeletal: No acute osseous pathology. IMPRESSION: Low lung volumes with a generalized hazy appearance which could represent atelectasis versus pulmonar y edema correlate with serum BNP. Expiratory rotated exam.
[2022-05-18 16:18] LABS: Partial Thromboplastin Time 21.4 sec (22.0-30.0)
[2022-05-18 16:26] LABS: Amorphous Sediment,Urine Moderate /hpf; Appearance,Urine Cloudy (Clear); Bacteria,Urine Rare /hpf; Bilirubin,Urine Negative (Negative); Blood,Urine Small (Negative); Color,Urine Yellow; Glucose,Urine (UA) Negative (Negative); Ketones,Urine Negative (Negative); Leukocyte Esterase,Urine Small (Negative); Mucus,Urine Rare /hpf; Nitrite,Urine Negative (Negative); PH, Urine 5.5 (5.0-8.0); Protein,Urine 2+ (Negative); RBC,Urine 5 /hpf (0-5); Specific Gravity,Urine 1.024 (1.001-1.035); Squamous Epithelial Cell,Urine 2 /hpf (0-4); WBC,Urine 4 /hpf (0-5)
[2022-05-18] MEDS ORDERED: SODIUM CHLORIDE 0.9% 1,000 ML IV ONE (16:57)
[2022-05-18] MEDS ORDERED: LEVOFLOXACIN 750MG-D5W PMX 750 MG in DEXTROSE/WATER 1 150ML.BAG IVPB STA (16:59)
[2022-05-18] MEDS ORDERED: SODIUM CHLORIDE 0.9% 500 ML 500 ML IV ONE (22:56)
[2022-05-18] MEDS: PIPERACILLIN-TAZOBACTAM 3.375 GM in SODIUM CHLORIDE 0.9% 100 ML IVPB SCH (23:32)
[2022-05-19] MEDS ORDERED: DEXTROSE 50% SYRINGE 50 ML IVP PRN ×2 (04:07)
[2022-05-19 06:23] LABS: Glucose,Whole Blood 92 mg/dL (70-110)
[2022-05-19] MEDS: INSULIN ASPART (NovoLOG) 100 UNIT/ML VIAL SQ SCH ×4 (06:24→21:24)
[2022-05-19] MEDS: LEVOTHYROXINE 88 MCG TAB PO SCH (06:31)
[2022-05-19] MEDS ORDERED: glipiZIDE 5 MG TAB PO SCH (07:30)
[2022-05-19] MEDS: LOSARTAN 50 MG TAB PO SCH (08:32)
[2022-05-19] MEDS: atenoloL 25 MG TAB PO SCH (08:32)
[2022-05-19] MEDS: ASPIRIN 81 MG PO SCH (08:49)
[2022-05-19] MEDS: OXYBUTYNIN CHLORIDE 5 MG TAB PO SCH ×3 (08:50→21:23)
[2022-05-19] MEDS: PIPERACILLIN-TAZOBACTAM 3.375 GM in SODIUM CHLORIDE 0.9% 100 ML IVPB SCH ×3 (08:50→23:37)
--- NOTE | 2022-05-19 08:52 | P.HPIM ---
History of Present Illness H&P Date: 05/19/22 Vinicio Lucas, is a 76 year old male who presented to [facility] with a chief complaint of fever and difficulty breathing, patient was recently seen at [facility] emergency room at that time he was complaining of abdominal pain computed tomography scan of the abdomen and pelvis was done and revealed evidence of cholelithiasis, otherwise no acute findings he was discharged home from the emergency room. He was evaluated in the emergency room vital examination on presentation revealed a temperature of 103.8 pulse 92 respiration 18 blood pressure 120/49 pulse ox 99% on 15 L nonrebreather mask, subsequently blood pressure dropped to 75/40 Laboratory data revealed a white blood count of 6.0 hemoglobin 10.1 platelet count 167 BUN 29 creatinine 2.14 urine analysis revealed small leukocyte esterase, negative nitrite with 4 white blood cells in high power field, infl uenza A and B RSV and COVID-19 PCR were all negative Testing in the emergency room revealed EKG done in the emergency room revealed sinus rhythm with first-degree AV block and right bundle branch block, chest x- ray done in emergency room revealed low lung volumes with generalized hazy appearance that would represent atelectasis versus pulmonary edema. Patient was admitted to medical floor for further evaluation and treatment, he was started on IV antibiotic in the emergency room, he was given IV bolus due to hypotension. Past medical history is significant for history of hypertension, history of hyperlipidemia, history of [id number] diabetes mellitus, history of gout, history of prostate cancer, history of obstructive sleep apnea, history of cardiac arrhythmia was previous history of pacemaker placement, history of gastroesophageal reflux disease, and previous history of smoking On review of systems patient at this time is alert and oriented 3 in no apparent distress his fever has subsided there is no chills no headache or dizziness he is complaining of cough and complaining of shortness of breath with any activity he denies any chest pain there is no nausea or vomiting no abdominal pain no diarrhea no blood in the stools there is no burning with urination his urine is darker no frequency or urgency and no hematuria. Past Medical History Past Medical History: Cancer, Diabetes Mellitus, GERD/Reflux, Hyperlipidemia, Hypertension, Osteoarthritis (OA), Prostate Disorder, Sleep Apnea/CPAP/BIPAP, Thyroid Disorder Additional Past Medical History / Comment(s): CML, gout, no longer needs cpap,hx prostate cancer 2007,rinary leakage History of Any Multi-Drug Resistant Organisms: None Reported Past Surgical History: Pacemaker, Prostate Surgery Additional Past Surgical History / Comment(s): uvula surgery for sleep apnea, left cataract,prostatectomy,bladder mesh surgery after prostate surgery Past Anesthesia/Blood Transfusion Reactions: No Reported Reaction Type of Cardiac Device: Permanent Pacemaker Device Placement Date:: 11/20/14 Past Psychological History: No Psychological Hx Reported Smoking Status: Former smoker Past Alcohol Use History: None Reported Additional Past Alcohol Use History / Comment(s): quit smoking 1979, smoked for 15 yrs Past Drug Use History: None Reported - Past Family History Mother Family Medical History: Cancer Additional Family Medical History / Comment(s): breast Sister(s) Family Medical History: Cancer Medications and Allergies Home Medications Medication Instructions Recorded Confirmed Type Aspirin 81 mg PO DAILY 01/31/14 05/18/22 History Losartan Potassium 100 mg PO DAILY 01/31/14 05/18/22 History allopurinoL [Zyloprim] 300 mg PO DAILY 01/31/14 05/18/22 History Oxybutynin Chloride [Ditropan] 5 mg PO TID 09/12/14 05/18/22 History glipiZIDE [Glucotrol] 5 mg PO TID-W/MEALS 04/24/18 05/18/22 History Cholecalciferol [Vitamin D3 (25 50 mcg PO HS 11/17/20 05/18/22 History Mcg = 1000 Iu)] atenoloL [Tenormin] 25 mg PO DAILY 11/17/20 05/18/22 History Cefdinir [Omnicef] 300 mg PO BID 05/18/22 05/18/22 History Cetirizine HCl [Zyrtec] 10 mg PO HS 05/18/22 05/18/22 History HYDROcodone/APAP 7.5-325MG [Ventress 1 tab PO Q6HR PRN 05/18/22 05/18/22 History 7.5-325] Imatinib Mesylate [Gleevec] 300 mg PO DAILY 05/18/22 05/18/22 History Levothyroxine Sodium [Synthroid] 88 mcg PO DAILY 05/18/22 05/18/22 History Omeprazole [PriLOSEC] 20 mg PO HS 05/18/22 05/18/22 History Ondansetron Odt [Zofran Odt] 4 mg PO Q6H PRN 05/18/22 05/18/22 History Pantoprazole Sodium [Protonix] 40 mg PO DAILY 05/18/22 05/18/22 History Allergies Allergy/AdvReac Type Severity Reaction Status Date / Time wheat Allergy CONGESTION Verified 05/18/22 17:27 yeast, dried [yeast] Allergy CONGESTION Verified 05/18/22 17:27 mold Allergy Unknown Uncoded 05/18/22 17:27 Physical Exam Vitals: Vital Signs Temp Pulse Pulse Resp BP BP Pulse Ox 05/19/22 06:42 63 19 101/58 99 05/19/22 04:00 98.2 F 54 L 19 91/48 98 05/18/22 23:28 97.3 F L 52 L 90/55 100 05/18/22 23:19 98.3 F 56 L 18 95/61 98 05/18/22 22:31 56 L 18 94/65 98 05/18/22 22:00 52 L 18 97/49 98 05/18/22 21:00 53 L 18 87/46 98 05/18/22 20:18 56 L 18 82/43 98 05/18/22 20:00 98 F 54 L 18 75/43 98 05/18/22 19:00 60 18 80/42 98 05/18/22 17:45 100.2 F H 67 75/40 96 05/18/22 14:32 103.8 F H 92 120/49 99 Intake and Output 05/18/22 05/19/22 05/19/22 22:59 06:59 14:59 Output Total 250 Balance -250 Output: Urine 250 Other: Voiding Method Toilet Weight 104.326 kg In general patient is alert and oriented x 3 in no distress HEENT head normocephalic and atraumatic Neck is supple no JVD no goiter no lymphadenopathy no carotid bruit Chest examination reveals a scattered crackles bilaterally no wheezing Cardiac exam reveals regular heart sounds S1 and S2 no gallops no murmurs Abdomen is soft nontender no organomegaly with normal bowel sounds Extremity exam reveals no edema no cyanosis or clubbing Neurological examination reveals no gross focal deficits Results CBC & Chem 7: 05/18/22 14:57 05/18/22 14:57 Labs: Abnormal Lab Results - Last 24 Hours (Table) 03/05/18/22 05/18/22 Range/Units 14:57 14:57 14:57 RBC 3.22 L (4.30-5.90) m/uL Hgb 10.1 L (13.0-17.5) gm/dL Hct 30.3 L (39.0-53.0) % Lymphocytes # 0.3 L (1.0-4.8) k/uL APTT 21.4 L (22.0-30.0) sec BUN 29 H (9-20) mg/dL Creatinine 2.14 H (0.66-1.25) mg/dL Glucose 134 H (74-99) mg/dL Plasma Lactic Acid Lonnie (0.7-2.0) mmol/L Total Protein 5.9 L (6.3-8.2) g/dL Albumin 3.3 L (3.5-5.0) g/dL Urine Protein (Negative) Urine Blood (Negative) Ur Leukocyte Esterase (Negative) Amorphous Sediment (None) /hpf Urine Bacteria (None) /hpf Urine Mucus (None) /hpf 05/18/22 05/18/22 Range/Units 14:57 16:05 RBC (4.30-5.90) m/uL Hgb (13.0-17.5) gm/dL Hct (39.0-53.0) % Lymphocytes # (1.0-4.8) k/uL APTT (22.0-30.0) sec BUN (9-20) mg/dL Creatinine (0.66-1.25) mg/dL Glucose (74-99) mg/dL Plasma Lactic Acid Lonnie 2.5 H* (0.7-2.0) mmol/L Total Protein (6.3-8.2) g/dL Albumin (3.5-5.0) g/dL Urine Protein 2+ H (Negative) Urine Blood Small H (Negative) Ur Leukocyte Esterase Small H (Negative) Amorphous Sediment Moderate H (None) /hpf Urine Bacteria Rare H (None) /hpf Urine Mucus Rare H (None) /hpf Thrombosis Risk Factor Assmnt - Choose All That Apply Any of the Below Risk Factors Present?: Yes Each Factor Represents 1 point: Obesity (BMI >25) Each Risk Factor Represents 3 Points: Age 75 years or older Thrombosis Risk Factor Assessment Total Risk Factor Score: 4 Thrombosis Risk Factor Assessment Level: Moderate Risk Assessment and Plan Plan: Acute sepsis, as evidenced by fever of 103.8 on presentation, elevated lactic acid at 2.5, and hypotension Acute on chronic renal failure Evidence of urinary tract infection Underlying history of hypertension Underlying history of hyperlipidemia Underlying history of hypothyroidism Underlying history of [id number]-noojftvlu diabetes mellitus Underlying history of prostate cancer with previous surgery Underlying history of cardiac arrhythmia was history of pacemaker placement At this time patient is admitted to telemetry floor He was started on IV Levaquin in the emergency room, however patient had a possible reaction on the floor Levaquin was discontinued and patient was started on IV Zosyn Home medications reviewed and reordered. Infectious disease and pulmonary consultation were requested Abdomen ultrasound ordered Blood culture and urine culture were ordered For DVT prophylaxis subcu Margaret Will follow closely
[2022-05-19] MEDS ORDERED: PANTOPRAZOLE 40 MG TABLET PO SCH (09:00)
[2022-05-19] MEDS ORDERED: IMATINIB MESYLATE 100 MG PO SCH (09:00)
[2022-05-19 09:09] LABS: Basophils % (A) 0 %; Eosinophils # (A) 0.2 k/uL (0-0.7); Eosinophils % (A) 2 %; HCT 29.3 % (39.0-53.0); HGB 9.3 gm/dL (13.0-17.5); Lymphocytes # (A) 0.7 k/uL (1.0-4.8); Lymphocytes % (A) 7 %; MCH 31.1 pg (25.0-35.0); MCHC 31.8 g/dL (31.0-37.0); MCV 97.9 fL (80.0-100.0); Mean Platelet Volume 8.9; Monocytes # (A) 0.3 k/uL (0-1.0); Monocytes % (A) 3 %; Neutrophils # (A) 8.8 k/uL (1.3-7.7); Neutrophils % (A) 87 %; Platelet Count 165 k/uL (150-450); RBC 2.99 m/uL (4.30-5.90); RDW 12.9 % (11.5-15.5); WBC 10.1 k/uL (3.8-10.6)
[2022-05-19 09:44] LABS: Albumin 2.9 g/dL (3.5-5.0); Potassium 4.4 mmol/L (3.5-5.1); Total Bilirubin 0.6 mg/dL (0.2-1.3); Total Protein 5.3 g/dL (6.3-8.2)
--- NOTE | 2022-05-19 11:06 | P.CNPUL ---
History of Present Illness Consult date: 05/19/22 Chief complaint: fever, shortness of breath History of present illness: This is a 76-year-old male patient with known history of CML, who was hos pitalized yesterday because of fever, difficulty breathing and altered mentation. On initial presentation to the emergency, the patient had a temperature of 103.1. He was also hypotensive with a systolic blood pressure is low as in the 60s. Apparently the patient was also profoundly hypoxic on a nonrebreather fullface mask 15 L at time of admission. He was having difficulty breathing for a couple of days and he was started on outpatient antibiotics for symptoms of bronchitis. He continued to decline for that reason he came into the emergency department. In the ED, the patient was found to have a white cell count of 6 with a hemoglobin of 10.1 and a platelet count of 167. The BAL was 2 9 with a creatinine of 2.1 and a sodium level of 138. Normal coagulation profile. He has 5% lymphocytosis on his CBC with a 93% neutrophilia. His lactic acid level was at 2.5. He had a UA that was essentially showing for WBCs and 5 RBCs, and influenza screen and Covid 19 screen were all negative. The patient accordingly was admitted and started on broad-spectrum antibiotics. In the emergency, the patient was given a chest x-ray that showed increased interstitial markings bilaterally. Some prominence of the right hilum especially in the infrahilar region. The patient has a pacemaker over the left anterior chest area. No clearcut consolidations or airspace disease. Since his admission, the patient's mental status improved and currently is back to his baseline. Is currently on IV Zosyn. Cultures have been sent and is also still pending for now. His proBNP level was 8520. Normal LFTs. Lactic acid levels improved and is currently down to 1.2. Pro-calcitonin has not been checked. Noted the patient has a component of chronic kidney disease and his creatinine is on the rise and currently in today's evaluation is up to 2.9. Note that he was hypotensive at the time of admission and currently is normotensive. His blood pressure currently is still soft at 86/51. He is currently on IV fluids and he was receiving normal saline at 75 mL an hour. IV fluids was consistent d iscontinued by the primary care team. The patient was taken Omnicef on an outpatient basis. As far as his CML, the patient was receiving Gleevec 300 mg by mouth daily on a daily basis on outpatient basis. Note that the patient was also had [facility] few days back complaining of abdominal pain and he was given a CAT scan of the abdomen and pelvis that revealed cholelithiasis and there was no findings of an acute cholecystitis. In terms of his cardiac situation, the patient has history of sick sinus syndrome and the patient has a permanent pacemaker in place. The most recent echocardiogram available is from February 2021 and the patient back then had a left ventricular ejection fraction was normal without any significant valvular abnormalities. He is known to have obstructive sleep apnea. He has undergone previous UPPP. His other comorbid conditions include diabetes mellitus type 2, chronic stage III kidney disease, hypertension, hyperlipidemia along with history of CLL. Review of Systems Constitutional: Reports fatigue, Reports fever Eyes: denies as per HPI, denies blurred vision, denies bulging eye, denies decreased vision, denies diplopia, denies discharge, denies dry eye, denies irritation, denies itching, denies pain, denies photophobia, denies loss of peripheral vision, denies loss of vision, denies tunnel vision/blind spots Ears: deny: decreased hearing, ear discharge, earache, tinnitus Ears, nose, mouth and throat: Reports as per HPI Breasts: absent: as per HPI, gynecomastia Cardiovascular: Reports as per HPI (6 sinus syndrome and the patient has a permanent pacemaker in place) Respiratory: Reports dyspnea, Reports sleep apnea Gastrointestinal: Reports abdominal pain (A negative CAT scan of the abdomen done at [facility], he has cholelithiasis) Genitourinary: Reports as per HPI Musculoskeletal: Reports as per HPI Musculoskeletal: absent: ankle pain, ankle stiffness, ankle swelling Integumentary: Reports as per HPI Neurological: Reports confusion (Recovered and is back to normal) Psychiatric: Reports as per HPI Endocrine: Reports as per HPI Past Medical History Past Medical History: Cancer, Diabetes Mellitus, GERD/Reflux, Hyperlipidemia, Hypertension, Osteoarthritis (OA), Prostate Disorder, Sleep Apnea/CPAP/BIPAP, Thyroid Disorder Additional Past Medical History / Comment(s): Sick sinus and the with a previous history of pacemaker insertion, CML, gout, no longer needs cpap,hx prostate cancer 2007, diabetes mellitus type 2, chronic kidney disease, hypertension, hyperlipidemia History of Any Multi-Drug Resistant Organisms: None Reported Past Surgical History: Pacemaker, Prostate Surgery Additional Past Surgical History / Comment(s): uvula surgery for sleep apnea, left cataract,prostatectomy,bladder mesh surgery after prostate surgery Past Anesthesia/Blood Transfusion Reactions: No Reported Reaction Type of Cardiac Device: Permanent Pacemaker Device Placement Date:: 11/20/14 Past Psychological History: No Psychological Hx Reported Smoking Status: Former smoker Past Alcohol Use History: None Reported Additional Past Alcohol Use History / Comment(s): quit smoking 1979, smoked for 15 yrs Past Drug Use History: None Reported - Past Family History Mother Family Medical History: Cancer Additional Family Medical History / Comment(s): breast Sister(s) Family Medical History: Cancer Medications and Allergies Home Medications Medication Instructions Recorded Confirmed Type Aspirin 81 mg PO DAILY 01/31/14 05/18/22 History Losartan Potassium 100 mg PO DAILY 01/31/14 05/18/22 History allopurinoL [Zyloprim] 300 mg PO DAILY 01/31/14 05/18/22 History Oxybutynin Chloride [Ditropan] 5 mg PO TID 09/12/14 05/18/22 History glipiZIDE [Glucotrol] 5 mg PO TID-W/MEALS 04/24/18 05/18/22 History Cholecalciferol [Vitamin D3 (25 50 mcg PO HS 11/17/20 05/18/22 History Mcg = 1000 Iu)] atenoloL [Tenormin] 25 mg PO DAILY 11/17/20 05/18/22 History Cefdinir [Omnicef] 300 mg PO BID 05/18/22 05/18/22 History Cetirizine HCl [Zyrtec] 10 mg PO HS 05/18/22 05/18/22 History HYDROcodone/APAP 7.5-325MG [Barton 1 tab PO Q6HR PRN 05/18/22 05/18/22 History 7.5-325] Imatinib Mesylate [Gleevec] 300 mg PO DAILY 05/18/22 05/18/22 History Levothyroxine Sodium [Synthroid] 88 mcg PO DAILY 05/18/22 05/18/22 History Omeprazole [PriLOSEC] 20 mg PO HS 05/18/22 05/18/22 History Ondansetron Odt [Zofran Odt] 4 mg PO Q6H PRN 05/18/22 05/18/22 History Pantoprazole Sodium [Protonix] 40 mg PO DAILY 05/18/22 05/18/22 History Allergies Allergy/AdvReac Type Severity Reaction Status Date / Time wheat Allergy CONGESTION Verified 05/18/22 17:27 yeast, dried [yeast] Allergy CONGESTION Verified 05/18/22 17:27 mold Allergy Unknown Uncoded 05/18/22 17:27 Physical Exam Vitals: Vital Signs Temp Pulse Pulse Resp BP BP Pulse Ox 05/19/22 09:09 97 05/19/22 08:00 97.5 F L 51 L 18 86/51 97 05/19/22 06:42 63 19 101/58 99 05/19/22 04:00 98.2 F 54 L 19 91/48 98 05/18/22 23:28 97.3 F L 52 L 90/55 100 05/18/22 23:19 98.3 F 56 L 18 95/61 98 05/18/22 22:31 56 L 18 94/65 98 05/18/22 22:00 52 L 18 97/49 98 05/18/22 21:00 53 L 18 87/46 98 05/18/22 20:18 56 L 18 82/43 98 05/18/22 20:00 98 F 54 L 18 75/43 98 05/18/22 19:00 60 18 80/42 98 05/18/22 17:45 100.2 F H 67 75/40 96 05/18/22 14:32 103.8 F H 92 120/49 99 Intake and Output 05/18/22 05/19/22 05/19/22 22:59 06:59 14:59 Intake Total 240 Output Total 250 Balance -250 240 Intake: Oral 240 Output: Urine 250 Other: Voiding Method Toilet Toilet Weight 104.326 kg The patient is currently on room air oxygen and he is awake and alert and communicating. No focal neurological deficits. In fact, he looks great and he doesn't look toxic at all. The patient appeared well nourished and normally developed. Vital signs as documented. Head exam is unremarkable. No scleral icterus or corneal arcus noted. Neck is without jugular venous distension, thyromegaly, or carotid bruits. Carotid upstrokes are brisk bilaterally. Lungs are clear to auscultation and percussion. Cardiac exam reveals the PMI to be normally sized and situated. Rhythm is regular. First and second heart sounds normal. No murmurs, rubs or gallops. Abdominal exam reveals normal bowel sounds, no masses, no organomegaly and no aortic enlargement. Extremities are nonedematous and both femoral and pedal pulses are normal.Examination of the skin revealed no evidence of significant rashes, suspicious appearing nevi or other concerning lesions.Neurologically, the patient is awake and alert and the patient does not have any focal neurological deficit. Cranial nerves are essentially intact. In the patient is a pacemaker pocket over the left anterior chest area. Results - Laboratory Findings CBC and BMP: 05/19/22 07:55 05/19/22 07:55 PT/INR, D-dimer PT 11.0 sec (9.0-12.0) 05/18/22 14:57 INR 1.0 (<1.2) 05/18/22 14:57 Abnormal lab findings: Abnormal Labs 05/18/22 05/18/22 05/18/22 14:57 14:57 14:57 RBC 3.22 L Hgb 10.1 L Hct 30.3 L Neutrophils # Lymphocytes # 0.3 L APTT 21.4 L BUN 29 H Creatinine 2.14 H Glucose 134 H Plasma Lactic Acid Lonnie Calcium Total Protein 5.9 L Albumin 3.3 L Urine Protein Urine Blood Ur Leukocyte Esterase Amorphous Sediment Urine Bacteria Urine Mucus 05/18/22 05/18/22 05/19/22 14:57 16:05 07:55 RBC 2.99 L Hgb 9.3 L Hct 29.3 L Neutrophils # 8.8 H Lymphocytes # 0.7 L APTT BUN Creatinine Glucose Plasma Lactic Acid Lonnie 2.5 H* Calcium Total Protein Albumin Urine Protein 2+ H Urine Blood Small H Ur Leukocyte Esterase Small H Amorphous Sediment Moderate H Urine Bacteria Rare H Urine Mucus Rare H 05/19/22 07:55 RBC Hgb Hct Neutrophils # Lymphocytes # APTT BUN 34 H Creatinine 2.96 H Glucose 73 L Plasma Lactic Acid Lonnie Calcium 8.0 L Total Protein 5.3 L Albumin 2.9 L Urine Protein Urine Blood Ur Leukocyte Esterase Amorphous Sediment Urine Bacteria Urine Mucus - Diagnostic Findings Chest x-ray: image reviewed Assessment and Plan Plan: Acute febrile illness, under investigation. The patient presented with fever and hypotension and hypoxemia. Note that he is much improved and is back to his normal. Is currently on room air oxygen. Normal mentation. No focal neurological deficits. No evidence of any pneumonia. No evidence of any source of an infection at this point in time and the patient is still being investigated Acute on chronic kidney injury, as the patient has chronic stage III kidney disease History of CML maintained on Gleevec on outpatient basis Sick sinus syndrome and the patient has a pacemaker in place Diabetes mellitus type 2 Hypertension Hyperlipidemia Gout Hypothyroidism Obstructive sleep apnea and the patient has undergone a previous UPPP Prostate cancer with a previous prostatectomy Cholelithiasis without signs of any acute cholecystitis Anemia of chronic disease Plan Monitor fever pattern Monitor blood pressure Nephrology consultation Check pro calcitonin level Check cultures including urine and blood Amylase and lipase Ultrasound the gallbladder Check a d-dimer, if elevated, do Dopplers of the lower extremities We'll continue to follow. Neurologically intact at this point in time. Current ly is on room air oxygen.
[2022-05-19 11:41] LABS: Glucose,Whole Blood 65 mg/dL (70-110)
[2022-05-19 11:44] LABS: Amylase 57 U/L (30-110); Lipase 140 U/L (23-300)
[2022-05-19] MEDS: ENOXAPARIN 30 MG/0.3 ML SYRINGE SQ SCH (11:46)
[2022-05-19 12:00] LABS: Glucose,Whole Blood 72 mg/dL (70-110)
[2022-05-19 13:20] VITALS: BMI 32.1
--- NOTE | 2022-05-19 13:43 | US ---
EXAMINATION TYPE: US abdomen complete DATE OF EXAM: 05/19/2022 COMPARISON: 03/02/2020 CLINICAL HISTORY: abdominal pain. ABD pain TECHNIQUE: Multiple sonographic images of the abdomen are obtained. FINDINGS: EXAM MEASUREMENTS: Liver Length: 20.7 cm Gallbladder Wall: 0.6 cm CBD: 0.6 cm Spleen: 12.9 cm Right Kidney: 14.1 x 6.6 x 6.6 cm Left Kidney: 13.1 x 6.6 x 6.2 cm MANAGER ACUTE NOTES: Pancreas: Obscured by bowel gas Liver: Enlarged Gallbladder: Lumen filled with gallstones, wall thickened Evidence for sonographic Plaza's sign: No CBD: wnl Spleen: Upper limits of normal for size Right Kidney: Multicystic, largest cyst mid= 7.4 x 5.1 x 7.7 cm Left Kidney: Multicystic, largest cyst mid= 4.4 x 3.6 x 4.2 cm Upper IVC: wnl Abd Aorta: Obscured by overlying bowel gas IMPRESSION: 1. Hepatomegaly correlate for hepatocellular disease. 2. Cholelithiasis with wall thickening correlate for acute cholecystitis.
--- NOTE | 2022-05-19 13:50 | US ---
EXAMINATION TYPE: US venous doppler duplex LE DATE OF EXAM: 05/19/2022 12:52 PM COMPARISON: NONE CLINICAL HISTORY: elevated d dimer. Elevated D-Dimer SIDE PERFORMED: Bilateral TECHNIQUE: The lower extremity deep venous system is examined utilizing real time linear array sonog [place] with graded compression, doppler sonography and color-flow sonography. VESSELS IMAGED: Common Femoral Vein Deep Femoral Vein Greater Saphenous Vein * Femoral Vein Popliteal Vein Small Saphenous Vein * Proximal Calf Veins (* superficial vessels) Right Leg: Negative for DVT Left Leg: Negative for DVT IMPRESSION: Grayscale, color doppler, spectral doppler imaging performed of the deep veins of the lo wer extremities. There is normal flow, compressibility, vascular waveforms.
[2022-05-19] MEDS: allopurinoL 300 MG TAB PO SCH (13:59)
--- NOTE | 2022-05-19 15:14 | P.GSCN ---
History of Present Illness Consult date: 05/19/22 History of present illness: CHIEF COMPLAINT: Altered mental status and fever HISTORY OF PRESENT ILLNESS: This is a 76-year-old male who presented to the hospital with altered mental status and fever as high as 103.8. Apparently had some shortness of breath at that time as well. Patient is currently lying in bed comfortably. He is awake and alert orientated to 3. He is on room air. He reports that he just does not recall yesterday while he was having fevers. He does recall having right upper quadrant pain that radiated to his back on Monday. He has had similar symptoms in the past. He reports that symptoms on Monday started after eating pork chops. Patient is also been hypotensive. He had an abdominal ultrasound completed that showed evidence of cholelithiasis with thickened gallbladder wall correlate for acute cholecystitis. Patient is currently on IV antibiotics. Surgical service consult requested for acute cholecystitis. Patient does have a history of CML. Past abdominal surgical history includes appendectomy and inguinal hernia repair. PAST MEDICAL HISTORY: CML, prostate cancer status post surgery, diabetes mellitus, hyperlipidemia, hypertension, sleep apnea, thyroid disorder PAST SURGICAL HISTORY: see below MEDICATIONS: See below ALLERGIES: See below SOCIAL HISTORY: No illicit drug use. REVIEW OF SYSTEMS: CONSTITUTIONAL: Denies fever or chills. HEENT: Denies blurred vision, vision changes, or eye pain. Denies hemoptysis CARDIOVASCULAR: Denies chest pain or pressure. RESPIRATORY: No shortness of breath. GASTROINTESTINAL: See HPI for pertinent findings HEMATOLOGIC: Denies bleeding disorders. GENITOURINARY: Denies any blood in urine or increased urinary frequency. SKIN: Denies pruitis. Denies rash. PHYSICAL EXAM: VITAL SIGNS: Reviewed GENERAL: Well-developed in no acute distress. HEENT: No sclera icterus. Extraocular movements grossly intact. Moist buccal mucosa. Head is atraumatic, normocephalic. No nasal drainage. ABDOMEN: Soft. Nondistended. Tenderness to palpation of the right upper quadra nt NEUROLOGIC: Alert and oriented. Cranial nerves II through XII grossly intact. LABORATORY DATA: WBC is 10.1 Hgb 9.3 platelets 165 D-dimer 7.08 Sodium 137 potassium 4.4 creatinine 2.96 Glucose 72 Total bilirubin 0.6 AST 38 ALT 20 alk phos 69 BNP 8520 Lipase 140 amylase 57 Urinalysis negative for infection Influenza, RSV and COVID-19 not detected IMAGING: Abdominal ultrasound shows hepatomegaly correlate for hepatocellular disease. Cholelithiasis with gallbladder wall thickening correlate for acute cholecystitis Chest x-ray low lung volumes with generalized hazy appearance which could re present atelectasis versus pulmonary edema. ASSESSMENT: 1. Acute cholecystitis with ultrasound revealing cholelithiasis and gallbladder wall thickening 2. Right upper quadrant abdominal pain 3. Fever and hypotension PLAN: -Continue IV antibiotic -Recommend low-fat diet -Continue supportive care -Further recommendations forthcoming per surgeon Physician Human Resource Manager note has been reviewed by physician. Signing provider agrees with the documented findings, assessment, and plan of care. Past Medical History Past Medical History: Cancer, Diabetes Mellitus, GERD/Reflux, Hyperlipidemia, Hypertension, Osteoarthritis (OA), Prostate Disorder, Sleep Apnea/CPAP/BIPAP, Thyroid Disorder Additional Past Medical History / Comment(s): Sick sinus and the with a previous history of pacemaker insertion, CML, gout, no longer needs cpap,hx prostate cancer 2007, diabetes mellitus type 2, chronic kidney disease, hypertension, hyperlipidemia History of Any Multi-Drug Resistant Organisms: None Reported Past Surgical History: Pacemaker, Prostate Surgery Additional Past Surgical History / Comment(s): uvula surgery for sleep apnea, left cataract,prostatectomy,bladder mesh surgery after prostate surgery Past Anesthesia/Blood Transfusion Reactions: No Reported Reaction Type of Cardiac Device: Permanent Pacemaker Device Placement Date:: 11/20/14 Past Psychological History: No Psychological Hx Reported Smoking Status: Former smoker Past Alcohol Use History: None Reported Additional Past Alcohol Use History / Comment(s): quit smoking 1979, smoked for 15 yrs Past Drug Use History: None Reported - Past Family History Mother Family Medical History: Cancer Additional Family Medical History / Comment(s): breast Sister(s) Family Medical History: Cancer Medications and Allergies Home Medications Medication Instructions Recorded Confirmed Type Aspirin 81 mg PO DAILY 01/31/14 05/18/22 History Losartan Potassium 100 mg PO DAILY 01/31/14 05/18/22 History allopurinoL [Zyloprim] 300 mg PO DAILY 01/31/14 05/18/22 History Oxybutynin Chloride [Ditropan] 5 mg PO TID 09/12/14 05/18/22 History glipiZIDE [Glucotrol] 5 mg PO TID-W/MEALS 04/24/18 05/18/22 History Cholecalciferol [Vitamin D3 (25 50 mcg PO HS 11/17/20 05/18/22 History Mcg = 1000 Iu)] atenoloL [Tenormin] 25 mg PO DAILY 11/17/20 05/18/22 History Cefdinir [Omnicef] 300 mg PO BID 05/18/22 05/18/22 History Cetirizine HCl [Zyrtec] 10 mg PO HS 05/18/22 05/18/22 History HYDROcodone/APAP 7.5-325MG [[place] 1 tab PO Q6HR PRN 05/18/22 05/18/22 History 7.5-325] Imatinib Mesylate [Gleevec] 300 mg PO DAILY 05/18/22 05/18/22 History Levothyroxine Sodium [Synthroid] 88 mcg PO DAILY 05/18/22 05/18/22 History Omeprazole [PriLOSEC] 20 mg PO HS 05/18/22 05/18/22 History Ondansetron Odt [Zofran Odt] 4 mg PO Q6H PRN 05/18/22 05/18/22 History Pantoprazole Sodium [Protonix] 40 mg PO DAILY 05/18/22 05/18/22 History Allergies Allergy/AdvReac Type Severity Reaction Status Date / Time wheat Allergy CONGESTION Verified 05/18/22 17:27 yeast, dried [yeast] Allergy CONGESTION Verified 05/18/22 17:27 Beef Containing Products AdvReac congestion, Verified 05/19/22 13:17 [Beef] sneezing milk AdvReac congestion, Verified 05/19/22 13:16 sneezing mold Allergy Unknown Uncoded 05/18/22 17:27 Surgical - Exam Vital Signs Temp Pulse BP Pulse Ox 103.8 F H 92 120/49 99 05/18/22 14:32 05/18/22 14:32 05/18/22 14:32 05/18/22 14:32 Results - Labs 05/19/22 07:55 05/19/22 07:55 Abnormal Lab Results - Last 24 Hours (Table) 05/18/22 05/18/22 05/18/22 Range/Units 14:57 14:57 14:57 RBC 3.22 L (4.30-5.90) m/uL Hgb 10.1 L (13.0-17.5) gm/dL Hct 30.3 L (39.0-53.0) % Neutrophils # (1.3-7.7) k/uL Lymphocytes # 0.3 L (1.0-4.8) k/uL APTT 21.4 L (22.0-30.0) sec D-Dimer (<0.60) mg/L FEU BUN 29 H (9-20) mg/dL Creatinine 2.14 H (0.66-1.25) mg/dL Glucose 134 H (74-99) mg/dL POC Glucose (mg/dL) (70-110) mg/dL Plasma Lactic Acid Lonnie (0.7-2.0) mmol/L Calcium (8.4-10.2) mg/dL Total Protein 5.9 L (6.3-8.2) g/dL Albumin 3.3 L (3.5-5.0) g/dL Urine Protein (Negative) Urine Blood (Negative) Ur Leukocyte Esterase (Negative) Amorphous Sediment (None) /hpf Urine Bacteria (None) /hpf Urine Mucus (None) /hpf 05/18/22 05/18/22 05/19/22 Range/Units 14:57 16:05 07:55 RBC 2.99 L (4.30-5.90) m/uL Hgb 9.3 L (13.0-17.5) gm/dL Hct 29.3 L (39.0-53.0) % Neutrophils # 8.8 H (1.3-7.7) k/uL Lymphocytes # 0.7 L (1.0-4.8) k/uL APTT (22.0-30.0) sec D-Dimer (<0.60) mg/L FEU BUN (9-20) mg/dL Creatinine (0.66-1.25) mg/dL Glucose (74-99) mg/dL POC Glucose (mg/dL) (70-110) mg/dL Plasma Lactic Acid Lonnie 2.5 H* (0.7-2.0) mmol/L Calcium (8.4-10.2) mg/dL Total Protein (6.3-8.2) g/dL Albumin (3.5-5.0) g/dL Urine Protein 2+ H (Negative) Urine Blood Small H (Negative) Ur Leukocyte Esterase Small H (Negative) Amorphous Sediment Moderate H (None) /hpf Urine Bacteria Rare H (None) /hpf Urine Mucus Rare H (None) /hpf 05/19/22 05/19/22 05/19/22 Range/Units 07:55 11:09 11:38 RBC (4.30-5.90) m/uL Hgb (13.0-17.5) gm/dL Hct (39.0-53.0) % Neutrophils # (1.3-7.7) k/uL Lymphocytes # (1.0-4.8) k/uL APTT (22.0-30.0) sec D-Dimer 7.08 H (<0.60) mg/L FEU BUN 34 H (9-20) mg/dL Creatinine 2.96 H (0.66-1.25) mg/dL Glucose 73 L (74-99) mg/dL POC Glucose (mg/dL) 65 L (70-110) mg/dL Plasma Lactic Acid Lonnie (0.7-2.0) mmol/L Calcium 8.0 L (8.4-10.2) mg/dL Total Protein 5.3 L (6.3-8.2) g/dL Albumin 2.9 L (3.5-5.0) g/dL Urine Protein (Negative) Urine Blood (Negative) Ur Leukocyte Esterase (Negative) Amorphous Sediment (None) /hpf Urine Bacteria (None) /hpf Urine Mucus (None) /hpf Diabetes panel 05/18/22 05/19/22 Range/Units 14:57 07:55 Sodium 138 137 (137-145) mmol/L Potassium 4.3 4.4 (3.5-5.1) mmol/L Chloride 106 104 (98-107) mmol/L Carbon Dioxide 25 25 (22-30) mmol/L BUN 29 H 34 H (9-20) mg/dL Creatinine 2.14 H 2.96 H (0.66-1.25) mg/dL Glucose 134 H 73 L (74-99) mg/dL Calcium 8.6 8.0 L (8.4-10.2) mg/dL AST 22 38 (17-59) U/L ALT 17 20 (4-49) U/L Alkaline Phosphatase 90 69 (38-126) U/L Total Protein 5.9 L 5.3 L (6.3-8.2) g/dL Albumin 3.3 L 2.9 L (3.5-5.0) g/dL Calcium panel 05/18/22 05/19/22 Range/Units 14:57 07:55 Calcium 8.6 8.0 L (8.4-10.2) mg/dL Albumin 3.3 L 2.9 L (3.5-5.0) g/dL Pituitary panel 05/18/22 05/19/22 Range/Units 14:57 07:55 Sodium 138 137 (137-145) mmol/L Potassium 4.3 4.4 (3.5-5.1) mmol/L Chloride 106 104 (98-107) mmol/L Carbon Dioxide 25 25 (22-30) mmol/L BUN 29 H 34 H (9-20) mg/dL Creatinine 2.14 H 2.96 H (0.66-1.25) mg/dL Glucose 134 H 73 L (74-99) mg/dL Calcium 8.6 8.0 L (8.4-10.2) mg/dL Adrenal panel 05/18/22 05/19/22 Range/Units 14:57 07:55 Sodium 138 137 (137-145) mmol/L Potassium 4.3 4.4 (3.5-5.1) mmol/L Chloride 106 104 (98-107) mmol/L Carbon Dioxide 25 25 (22-30) mmol/L BUN 29 H 34 H (9-20) mg/dL Creatinine 2.14 H 2.96 H (0.66-1.25) mg/dL Glucose 134 H 73 L (74-99) mg/dL Calcium 8.6 8.0 L (8.4-10.2) mg/dL Total Bilirubin 1.1 0.6 (0.2-1.3) mg/dL AST 22 38 (17-59) U/L ALT 17 20 (4-49) U/L Alkaline Phosphatase 90 69 (38-126) U/L Total Protein 5.9 L 5.3 L (6.3-8.2) g/dL Albumin 3.3 L 2.9 L (3.5-5.0) g/dL
[2022-05-19] MEDS: IMATINIB MESYLATE 100 MG PO SCH (15:45)
[2022-05-19 16:22] LABS: Glucose,Whole Blood 66 mg/dL (70-110)
[2022-05-19 16:41] LABS: Glucose,Whole Blood 70 mg/dL (70-110)
[2022-05-19] MEDS ORDERED: LEVOFLOXACIN 750MG-D5W PMX 750 MG in DEXTROSE/WATER 1 150ML.BAG IVPB SCH (17:00)
--- NOTE | 2022-05-19 17:26 | P.PN ---
Progress Note - Text Progress Note Date: 05/19/22 Patient's medical record was reviewed. The patient has evidence of acute cholecystitis. The patient will undergo laparoscopic cholecystectomy tomorrow. Initially the patient had wanted Dr. Jerry to do the surgery. Dr. Jerry is unavailable for surgery tomorrow because he is going out of town.. Dr. Silverman had asked me to see the patient. All the patient's questions were answered. We will plan for laparoscopic cholecystectomy..
[2022-05-19 20:16] LABS: Glucose,Whole Blood 80 mg/dL (70-110)
--- NOTE | 2022-05-19 21:12 | P.CONS ---
History of Present Illness - Reason for Consult Consult date: 05/19/22 Fever Requesting physician: River Connelly - Chief Complaint Fever and shortness of breath x one day - History of Present Illness Patient is a 76-year-old male with a past medical his significant for diabetes mellitus hypertension hyperlipidemia sleep apnea CML presenting to the ER yesterday morning for evaluation of increasing shortness of breath apparently the patient recently did have evaluation at [facility] with abdominal pain patient did have a CT that was suggestive of cholelithiasis and the patient was subsequently discharged home patient did not complain of abdominal pain this admission has been complaining of mostly shortness of breath on minimal exertion even at rest patient also have a cough moderate intensity with occasional sputum production no hemoptysis no pleuritic chest pain some nausea but no vomiting and no diarrhea on and presentation to the hospital patient was febrile with a temperature of 103 F patient was slightly bradycardic not hypoxic or need for supplemental oxygen did have a normal white count D-dimer was mildly elevated did have elevated BUN and creatinine liver enzymes are normal urine has been negative influenza RSV was negative blood cultures obtained which are currently pending patient did have a chest x-ray generalized hazy appearance with concern for atelectasis versus pulmonary edema patient abdominal ultrasound cholelithiasis with wall thickening correlate for acute cholecystitis venous Doppler were negative for DVT patient is currently being treated with Zosyn infectious he was consulted for further management Review of Systems Positive point has been mentioned in the HPI rest of the systems are negative Past Medical History Past Medical History: Cancer, Diabetes Mellitus, GERD/Reflux, Hyperlipidemia, Hypertension, Osteoarthritis (OA), Prostate Disorder, Sleep Apnea/CPAP/BIPAP, Thyroid Disorder Additional Past Medical History / Comment(s): Sick sinus and the with a previous history of pacemaker insertion, CML, gout, no longer needs cpap,hx prostate cancer 2007, diabetes mellitus type 2, chronic kidney disease, hypertension, hyperlipidemia History of Any Multi-Drug Resistant Organisms: None Reported Past Surgical History: Pacemaker, Prostate Surgery Additional Past Surgical History / Comment(s): uvula surgery for sleep apnea, left cataract,prostatectomy,bladder mesh surgery after prostate surgery Past Anesthesia/Blood Transfusion Reactions: No Reported Reaction Type of Cardiac Device: Permanent Pacemaker Device Placement Date:: 11/20/14 Past Psychological History: No Psychological Hx Reported Smoking Status: Former smoker Past Alcohol Use History: None Reported Additional Past Alcohol Use History / Comment(s): quit smoking 1979, smoked for 15 yrs Past Drug Use History: None Reported - Past Family History Mother Family Medical History: Cancer Additional Family Medical History / Comment(s): breast Sister(s) Family Medical History: Cancer Medications and Allergies Home Medications Medication Instructions Recorded Confirmed Type Aspirin 81 mg PO DAILY 01/31/14 05/18/22 History allopurinoL [Zyloprim] 300 mg PO DAILY 01/31/14 05/18/22 History Oxybutynin Chloride [Ditropan] 5 mg PO TID 09/12/14 05/18/22 History glipiZIDE [Glucotrol] 5 mg PO TID-W/MEALS 04/24/18 05/18/22 History Cholecalciferol [Vitamin D3 (25 50 mcg PO HS 11/17/20 05/18/22 History Mcg = 1000 Iu)] atenoloL [Tenormin] 25 mg PO DAILY 11/17/20 05/18/22 History Cetirizine HCl [Zyrtec] 10 mg PO HS 05/18/22 05/18/22 History HYDROcodone/APAP 7.5-325MG [[place] 1 tab PO Q6HR PRN 05/18/22 05/18/22 History 7.5-325] Imatinib Mesylate [Gleevec] 300 mg PO DAILY 05/18/22 05/18/22 History Levothyroxine Sodium [Synthroid] 88 mcg PO DAILY 05/18/22 05/18/22 History Omeprazole [PriLOSEC] 20 mg PO HS 05/18/22 05/18/22 History Ondansetron Odt [Zofran ODT] 4 mg PO Q6H PRN 05/18/22 05/18/22 History Pantoprazole Sodium [Protonix] 40 mg PO DAILY 05/18/22 05/18/22 History Amoxic-Pot Clav 875-125Mg 1 tab PO Q12HR 10 Days #20 tab 05/23/22 Rx [Augmentin 875-125] Amoxic-Pot Clav 875-125Mg 1 tab PO Q12HR 10 Days #20 tab 05/23/22 Rx [Augmentin 875-125] Allergies Allergy/AdvReac Type Severity Reaction Status Date / Time wheat Allergy CONGESTION Verified 05/18/22 17:27 yeast, dried [yeast] Allergy CONGESTION Verified 05/18/22 17:27 Beef Containing Products AdvReac congestion, Verified 05/19/22 13:17 [Beef] sneezing milk AdvReac congestion, Verified 05/19/22 13:16 sneezing mold Allergy Unknown Uncoded 05/18/22 17:27 Physical Exam Vitals: Vital Signs Temp Pulse Pulse Resp BP BP Pulse Ox 05/19/22 09:09 97 05/19/22 08:00 97.5 F L 51 L 18 86/51 97 05/19/22 06:42 63 19 101/58 99 05/19/22 04:00 98.2 F 54 L 19 91/48 98 05/18/22 23:28 97.3 F L 52 L 90/55 100 05/18/22 23:19 98.3 F 56 L 18 95/61 98 05/18/22 22:31 56 L 18 94/65 98 05/18/22 22:00 52 L 18 97/49 98 05/18/22 21:00 53 L 18 87/46 98 05/18/22 20:18 56 L 18 82/43 98 05/18/22 20:00 98 F 54 L 18 75/43 98 05/18/22 19:00 60 18 80/42 98 05/18/22 17:45 100.2 F H 67 75/40 96 05/18/22 14:32 103.8 F H 92 120/49 99 Intake and Output 05/18/22 05/19/22 05/19/22 22:59 06:59 14:59 Intake Total 240 Output Total 250 Balance -250 240 Intake: Oral 240 Output: Urine 250 Other: Voiding Method Toilet Toilet Weight 104.326 kg GENERAL DESCRIPTION: Elderly male lying in bed, no distress. No tachypnea or accessory muscle of respiration use. HEENT: Shows Pallor , no scleral icterus. Oral mucous membrane is dry. NECK: Trachea central, no thyromegaly. LUNGS: Unlabored breathing. Decreased breath sound the bases. HEART: S1, S2, regular rate and rhythm. No loud murmur ABDOMEN: Soft, no tenderness , guarding or rigidity, no organomegaly EXTREMITIES: No edema of feet. SKIN: No rash, no masses palpable. NEUROLOGICAL: The patient is awake, alert, oriented x3, mood and affect normal. Results CBC & Chem 7: 04/02/23 04:21 05/22/22 04:21 Labs: Abnormal Lab Results - Last 24 Hours (Table) 05/18/22 05/18/22 05/18/22 Range/Units 14:57 14:57 14:57 RBC 3.22 L (4.30-5.90) m/uL Hgb 10.1 L (13.0-17.5) gm/dL Hct 30.3 L (39.0-53.0) % Neutrophils # (1.3-7.7) k/uL Lymphocytes # 0.3 L (1.0-4.8) k/uL APTT 21.4 L (22.0-30.0) sec BUN 29 H (9-20) mg/dL Creatinine 2.14 H (0.66-1.25) mg/dL Glucose 134 H (74-99) mg/dL Plasma Lactic Acid Lonnie (0.7-2.0) mmol/L Calcium (8.4-10.2) mg/dL Total Protein 5.9 L (6.3-8.2) g/dL Albumin 3.3 L (3.5-5.0) g/dL Urine Protein (Negative) Urine Blood (Negative) Ur Leukocyte Esterase (Negative) Amorphous Sediment (None) /hpf Urine Bacteria (None) /hpf Urine Mucus (None) /hpf 05/18/22 05/18/22 05/19/22 Range/Units 14:57 16:05 07:55 RBC 2.99 L (4.30-5.90) m/uL Hgb 9.3 L (13.0-17.5) gm/dL Hct 29.3 L (39.0-53.0) % Neutrophils # 8.8 H (1.3-7.7) k/uL Lymphocytes # 0.7 L (1.0-4.8) k/uL APTT (22.0-30.0) sec BUN (9-20) mg/dL Creatinine (0.66-1.25) mg/dL Glucose (74-99) mg/dL Plasma Lactic Acid Lonnie 2.5 H* (0.7-2.0) mmol/L Calcium (8.4-10.2) mg/dL Total Protein (6.3-8.2) g/dL Albumin (3.5-5.0) g/dL Urine Protein 2+ H (Negative) Urine Blood Small H (Negative) Ur Leukocyte Esterase Small H (Negative) Amorphous Sediment Moderate H (None) /hpf Urine Bacteria Rare H (None) /hpf Urine Mucus Rare H (None) /hpf 05/19/22 Range/Units 07:55 RBC (4.30-5.90) m/uL Hgb (13.0-17.5) gm/dL Hct (39.0-53.0) % Neutrophils # (1.3-7.7) k/uL Lymphocytes # (1.0-4.8) k/uL APTT (22.0-30.0) sec BUN 34 H (9-20) mg/dL Creatinine 2.96 H (0.66-1.25) mg/dL Glucose 73 L (74-99) mg/dL Plasma Lactic Acid Lonnie (0.7-2.0) mmol/L Calcium 8.0 L (8.4-10.2) mg/dL Total Protein 5.3 L (6.3-8.2) g/dL Albumin 2.9 L (3.5-5.0) g/dL Urine Protein (Negative) Urine Blood (Negative) Ur Leukocyte Esterase (Negative) Amorphous Sediment (None) /hpf Urine Bacteria (None) /hpf Urine Mucus (None) /hpf Assessment and Plan (1) Fever of unknown origin Status: Acute Code(s): R50.9 - FEVER, UNSPECIFIED SNOMED Code(s): 4725789 Plan: 1patient presented to hospital with fever some mental status changes also increasing shortness of breath and cough chest x-ray did show some haziness did not mention any consolidation the patient also was complaining of abdominal pain to the other facility with the patient did have a CT that was negative for any cholecystitis however ultrasound here is suspicious for cholecystitis and general surgery has been consulted 2we will try to obtain a sputum for Gram stain culture check a CRP and a procalcitonin 3continue with the Zosyn while waiting for the work-up to be completed We will follow on clinical condition and cultures to further adjust medication if needed Thank you for this consultation we will follow the patient along with you Time with Patient: Greater than 30
[2022-05-19] MEDS: LORATADINE 10 MG TAB PO SCH (21:23)
[2022-05-19] MEDS: PANTOPRAZOLE 40 MG TABLET PO SCH (21:23)
[2022-05-19] MEDS: CHOLECALCIFEROL 25 MCG (1000 IU) TABLET PO SCH (21:23)
[2022-05-20 06:02] LABS: Glucose,Whole Blood 76 mg/dL (70-110)
[2022-05-20] MEDS: LEVOTHYROXINE 88 MCG TAB PO SCH (06:20)
[2022-05-20] MEDS: INSULIN ASPART (NovoLOG) 100 UNIT/ML VIAL SQ SCH ×4 (06:29→20:11)
[2022-05-20] MEDS: ENOXAPARIN 30 MG/0.3 ML SYRINGE SQ SCH (08:22)
[2022-05-20] MEDS: LOSARTAN 50 MG TAB PO SCH (08:26)
[2022-05-20] MEDS: PIPERACILLIN-TAZOBACTAM 3.375 GM in SODIUM CHLORIDE 0.9% 100 ML IVPB SCH ×3 (08:26→23:46)
[2022-05-20] MEDS: allopurinoL 300 MG TAB PO SCH (08:26)
[2022-05-20] MEDS: atenoloL 25 MG TAB PO SCH (08:26)
[2022-05-20] MEDS: ASPIRIN 81 MG PO SCH (08:26)
[2022-05-20] MEDS: OXYBUTYNIN CHLORIDE 5 MG TAB PO SCH ×3 (08:26→20:45)
[2022-05-20 10:08] LABS: Basophils % (A) 0 %; Eosinophils # (A) 0.3 k/uL (0-0.7); Eosinophils % (A) 6 %; HCT 28.7 % (39.0-53.0); HGB 9.3 gm/dL (13.0-17.5); Lymphocytes # (A) 0.5 k/uL (1.0-4.8); Lymphocytes % (A) 10 %; MCH 30.8 pg (25.0-35.0); MCHC 32.2 g/dL (31.0-37.0); MCV 95.5 fL (80.0-100.0); Mean Platelet Volume 9.3; Monocytes # (A) 0.3 k/uL (0-1.0); Monocytes % (A) 6 %; Neutrophils # (A) 3.9 k/uL (1.3-7.7); Neutrophils % (A) 76 %; Platelet Count 174 k/uL (150-450); RBC 3.01 m/uL (4.30-5.90); RDW 12.8 % (11.5-15.5); WBC 5.2 k/uL (3.8-10.6)
--- NOTE | 2022-05-20 10:08 | P.PN ---
Subjective Progress Note Date: 05/20/22 Vinicio Lucas, is a 76 year old male who presented to [facility] with a chief complaint of fever and difficulty breathing, patient was recently seen at [facility] emergency room at that time he was complaining of abdominal pain computed tomography scan of the abdomen and pelvis was done and revealed evidence of cholelithiasis, otherwise no acute findings he was discharged home from the emergency room. He was evaluated in the emergency room vital examination on presentation revealed a temperature of 103.8 pulse 92 respiration 18 blood pressure 120/49 pulse ox 99% on 15 L nonrebreather mask, subsequently blood pressure dropped to 75/40 Laboratory data revealed a white blood count of 6.0 hemoglobin 10.1 platelet count 167 BUN 29 creatinine 2.14 urine analysis revealed small leukocyte esterase, negative nitrite with 4 white blood cells in high power field, influenza A and B RSV and COVID-19 PCR were all negative Testing in the emergency room revealed EKG done in the emergency room revealed sinus rhythm with first-degree AV block and right bundle branch block, chest x- ray done in emergency room revealed low lung volumes with generalized hazy appearance that would represent atelectasis versus pulmonary edema. Patient was admitted to medical floor for further evaluation and treatment, he was started on IV antibiotic in the emergency room, he was given IV bolus due to hypotension. Past medical history is significant for history of hypertension, history of hyp erlipidemia, history of tcc-fxogpcy-huqhwsmog diabetes mellitus, history of gout, history of prostate cancer, history of obstructive sleep apnea, history of cardiac arrhythmia was previous history of pacemaker placement, history of gastroesophageal reflux disease, and previous history of smoking On review of systems patient at this time is alert and oriented 3 in no apparent distress his fever has subsided there is no chills no headache or dizziness he is complaining of cough and complaining of shortness of breath with any activity he denies any chest pain there is no nausea or vomiting no ab dominal pain no diarrhea no blood in the stools there is no burning with urination his urine is darker no frequency or urgency and no hematuria. On 05/20/2022 patient is alert and oriented 3. Patient was found to have acute cholecystitis plans for surgical intervention today with Dr. Garcia area at this time patient is resting comfortably in bed. Patient denies chest pain or shortness of breath. Patient denies nausea vomiting or diarrhea. Patient denies any urinary burning or frequency. Objective - Vital Signs Vital signs: Vital Signs Temp 97.7 F 05/20/22 08:24 Pulse 58 L 05/20/22 08:24 Resp 16 05/20/22 08:24 BP 120/62 05/20/22 08:24 Pulse Ox 94 L 05/20/22 08:24 FiO2 Intake & Output 05/19/22 05/20/22 05/20/22 18:59 06:59 18:59 Intake Total 360 Output Total 300 Balance 60 Weight 104.326 kg Intake: Oral 360 Output: Urine 300 Other: Voiding Method Toilet Toilet Toilet # Voids 2 - Exam In general patient is alert and oriented x 3 in no distress HEENT head normocephalic and atraumatic Neck is supple no JVD no goiter no lymphadenopathy no carotid bruit Chest examination reveals a scattered crackles bilaterally no wheezing Cardiac exam reveals regular heart sounds S1 and S2 no gallops no murmurs Abdomen is soft nontender no organomegaly with normal bowel sounds Extremity exam reveals no edema no cyanosis or clubbing Neurological examination reveals no gross focal deficits - Labs CBC & Chem 7: 05/19/22 07:55 05/19/22 07:55 Labs: Abnormal Lab Results - Last 24 Hours (Table) 05/19/22 05/19/22 05/19/22 Range/Units 11:04 11:09 11:38 D-Dimer 7.08 H (<0.60) mg/L FEU POC Glucose (mg/dL) 65 L (70-110) mg/dL Procalcitonin >100.00 H (0.02-0.09) ng/mL 05/19/22 Range/Units 16:21 D-Dimer (<0.60) mg/L FEU POC Glucose (mg/dL) 66 L (70-110) mg/dL Procalcitonin (0.02-0.09) ng/mL Microbiology - Last 24 Hours (Table) 05/19/22 20:36 Sputum Culture - Preliminary Sputum 05/19/22 12:12 Urine Culture - Preliminary Urine,Voided 05/18/22 15:00 Blood Culture - Preliminary Blood No Growth after 24 hours 05/18/22 14:57 Blood Culture - Preliminary Blood No Growth after 24 hours Assessment and Plan Plan: Acute sepsis, as evidenced by fever of 103.8 on presentation, elevated lactic acid at 2.5, and hypotension Acute cholecystitis. Surgical intervention planned for 05/20/2022 Acute on chronic renal failure Evidence of urinary tract infection Underlying history of hypertension Underlying history of hyperlipidemia Underlying history of hypothyroidism Underlying history of ufy-bnkydpm-elogmfsvb diabetes mellitus Underlying history of prostate cancer with previous surgery Underlying history of cardiac arrhythmia was history of pacemaker placement At this time patient is admitted to telemetry floor He was started on IV Levaquin in the emergency room, however patient had a possible reaction on the floor Levaquin was discontinued and patient was started on IV Zosyn Home medications reviewed and reordered. Infectious disease, surgical services, pulmonary and nephrology service is consulted Kareem ennis plan for 05/20/2022 Blood culture and urine culture were ordered For DVT prophylaxis subcu Margaret Will follow closely
[2022-05-20 10:18] LABS: Albumin 2.8 g/dL (3.5-5.0); Potassium 4.4 mmol/L (3.5-5.1); Total Bilirubin 0.5 mg/dL (0.2-1.3); Total Protein 5.3 g/dL (6.3-8.2)
--- NOTE | 2022-05-20 10:40 | P.NPCON ---
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 Patient was also hypotensive with systolic blood pressure in the 60s. Currently improved and about 115 to 120 mmHg Patient was increase is sedated with IV fluids He is maintained on angiotensin receptor blockers. Patient is voiding on his own Serum creatinine was 2.1 and admission and increased to 2.9 yesterday. Previous creatinine has been around 1.6-1.8 mg/dL. Patient is being seen by general surgery for acute cholecystitis and there are plans for a cystectomy today. Review of Systems As per HPI. Past Medical History Past Medical History: Cancer, Diabetes Mellitus, GERD/Reflux, Hyperlipidemia, Hypertension, Osteoarthritis (OA), Prostate Disorder, Sleep Apnea/CPAP/BIPAP, Thyroid Disorder Additional Past Medical History / Comment(s): Sick sinus and the with a previous history of pacemaker insertion, CML, gout, no longer needs cpap,hx prostate cancer 2007, diabetes mellitus type 2, chronic kidney disease, hypertension, hyperlipidemia History of Any Multi-Drug Resistant Organisms: None Reported Past Surgical History: Pacemaker, Prostate Surgery Additional Past Surgical History / Comment(s): uvula surgery for sleep apnea, left cataract,prostatectomy,bladder mesh surgery after prostate surgery Past Anesthesia/Blood Transfusion Reactions: No Reported Reaction Type of Cardiac Device: Permanent Pacemaker Device Placement Date:: 11/20/14 Past Psychological History: No Psychological Hx Reported Smoking Status: Former smoker Past Alcohol Use History: None Reported Additional Past Alcohol Use History / Comment(s): quit smoking 1979, smoked for 15 yrs Past Drug Use History: None Reported - Past Family History Mother Family Medical History: Cancer Additional Family Medical History / Comment(s): breast Sister(s) Family Medical History: Cancer Medications and Allergies Home Medications Medication Instructions Recorded Confirmed Type Aspirin 81 mg PO DAILY 01/31/14 05/18/22 History Losartan Potassium 100 mg PO DAILY 01/31/14 05/18/22 History allopurinoL [Zyloprim] 300 mg PO DAILY 01/31/14 05/18/22 History Oxybutynin Chloride [Ditropan] 5 mg PO TID 09/12/14 05/18/22 History glipiZIDE [Glucotrol] 5 mg PO TID-W/MEALS 04/24/18 05/18/22 History Cholecalciferol [Vitamin D3 (25 50 mcg PO HS 11/17/20 05/18/22 History Mcg = 1000 Iu)] atenoloL [Tenormin] 25 mg PO DAILY 11/17/20 05/18/22 History Cefdinir [Omnicef] 300 mg PO BID 05/18/22 05/18/22 History Cetirizine HCl [Zyrtec] 10 mg PO HS 05/18/22 05/18/22 History HYDROcodone/APAP 7.5-325MG [Doddridge 1 tab PO Q6HR PRN 05/18/22 05/18/22 History 7.5-325] Imatinib Mesylate [Gleevec] 300 mg PO DAILY 05/18/22 05/18/22 History Levothyroxine Sodium [Synthroid] 88 mcg PO DAILY 05/18/22 05/18/22 History Omeprazole [PriLOSEC] 20 mg PO HS 05/18/22 05/18/22 History Ondansetron Odt [Zofran Odt] 4 mg PO Q6H PRN 05/18/22 05/18/22 History Pantoprazole Sodium [Protonix] 40 mg PO DAILY 05/18/22 05/18/22 History Allergies Allergy/AdvReac Type Severity Reaction Status Date / Time wheat Allergy CONGESTION Verified 05/18/22 17:27 yeast, dried [yeast] Allergy CONGESTION Verified 05/18/22 17:27 Beef Containing Products AdvReac congestion, Verified 05/19/22 13:17 [Beef] sneezing milk AdvReac congestion, Verified 05/19/22 13:16 sneezing mold Allergy Unknown Uncoded 05/18/22 17:27 Physical Exam Vitals: Vital Signs Temp Pulse Resp BP Pulse Ox 05/20/22 08:24 97.7 F 58 L 16 120/62 94 L 05/20/22 04:00 98.4 F 62 16 119/62 95 05/19/22 23:33 98.5 F 77 16 125/55 96 05/19/22 19:57 98.2 F 58 L 16 117/61 98 05/19/22 16:00 97.5 F L 55 L 18 101/60 98 05/19/22 14:00 56 L 16 05/19/22 12:00 97.8 F 56 L 16 101/59 97 Intake and Output 05/19/22 05/20/22 05/20/22 22:59 06:59 14:59 Intake Total 120 Balance 120 Intake: Oral 120 Other: Voiding Method Toilet Toilet Toilet # Voids 1 2 Patient is awake, comfortable, in no acute distress Examination of the heart S1 and S2 Examination of the lungs bilateral breath sounds are heard Abdomen is soft nontender Examination of lower extremity shows no evidence of edema [employer] exam grossly intact Results - Lab Results Most recent lab results Calcium 8.0 mg/dL (8.4-10.2) L 05/20/22 07:46 05/20/22 07:46 05/20/22 07:46 Assessment and Plan Assessment: 1. Acute kidney injury, nonoliguric secondary to ischemic ATN from low blood pressure and sepsis, slowly improving. 2. CK D NKF stage IIIB baseline creatinine about 1.6-1.8 mg/dL etiology is likely diabetic kidney disease. 3. Acute cholecystitis scheduled for cholecystectomy today 4. History of CML 5. hypertension with blood pressure currently on the lower side Plan: Hold Cozaar for now Repeat labs in a.m. Consider IV fluids based on labs and volume status tomorrow Continue antibiotics Thank you for the consultation. We will continue to follow the patient with you during his hospitalization
[2022-05-20 11:46] LABS: Glucose,Whole Blood 76 mg/dL (70-110)
--- NOTE | 2022-05-20 14:44 | P.PN ---
Subjective Progress Note Date: 05/20/22 This is a 76-year-old male patient with known history of CML, who was hospitalized yesterday because of fever, difficulty breathing and altered mentation. On initial presentation to the emergency, the patient had a temperature of 103.1. He was also hypotensive with a systolic blood pressure is low as in the 60s. Apparently the patient was also profoundly hypoxic on a nonrebreather fullface mask 15 L at time of admission. He was having difficulty breathing for a couple of days and he was started on outpatient antibiotics for symptoms of bronchitis. He continued to decline for that reason he came into the emergency department. In the ED, the patient was found to have a white cell count of 6 with a hemoglobin of 10.1 and a platelet count of 167. The BAL was 29 with a creatinine of 2.1 and a sodium level of 138. Normal coagulation profile. He has 5% lymphocytosis on his CBC with a 93% neutrophilia. His lactic acid level was at 2.5. He had a UA that was essentially showing for WBCs and 5 RBCs, and influenza screen and Covid 19 screen were all negative. The patient accordingly was admitted and started on broad-spectrum antibiotics. In the emergency, the patient was given a chest x-ray that showed increased interstitial markings bilaterally. Some prominence of the right hilum e specially in the infrahilar region. The patient has a pacemaker over the left anterior chest area. No clearcut consolidations or airspace disease. Since his admission, the patient's mental status improved and currently is back to his baseline. Is currently on IV Zosyn. Cultures have been sent and is also still pending for now. His proBNP level was 8520. Normal LFTs. Lactic acid levels improved and is currently down to 1.2. Pro-calcitonin has not been checked. Noted the patient has a component of chronic kidney disease and his creatinine is on the rise and currently in today's evaluation is up to 2.9. Note that he was hypotensive at the time of admission and currently is normotensive. His blood pressure currently is still soft at 86/51. He is currently on IV fluids and he was receiving normal saline at 75 mL an hour. IV fluids was consistent discontinued by the primary care team. The patient was taken Omnicef on an outpatient basis. As far as his CML, the patient was receiving Gleevec 300 mg by mouth daily on a daily basis on outpatient basis. Note that the patient was also had [facility] few days back complaining of abdominal pain and he was given a CAT scan of the abdomen and pelvis that revealed cholelithiasis and there was no findings of an acute cholecystitis. In terms of his cardiac situation, the patient has history of sick sinus syndrome and the patient has a permanent pacemaker in place. The most recent echocardiogram available is from February 2021 and the patient back then had a left ventricular ejection fraction was normal without any significant valvular abnormalities. He is known to have obstructive sleep apnea. He has undergone previous UPPP. His other comorbid conditions include diabetes mellitus type 2, chronic stage III kidney disease, hypertension, hyperlipidemia along with history of CLL. On 05/20/2022, no new complaints and the patient is doing well. The patient is afebrile. White suppositive 5.2. Normal LFTs. D-dimer was slightly elevated at 7.08. Based on that, ultrasound with Doppler of the lower extremity was done and showed no evidence of any DVT. Patient also underwent an ultrasound the right upper quadrant that showed no evidence of any sonographic Plaza size, common bile duct was within normal limits, there was hepatomegaly and cholelithiasis with wall thickening on the images. The patient's echoes at 5.2 with a hemoglobin of 9.3. BUN is 33 with a creatinine of 2.2. No respirat ory difficulties and the patient is currently on room air oxygen. Objective - Vital Signs Vital signs: Vital Signs Temp 97.7 F 05/20/22 08:24 Pulse 51 L 05/20/22 13:36 Resp 16 05/20/22 11:07 BP 130/62 05/20/22 11:07 Pulse Ox 97 05/20/22 11:07 FiO2 Intake & Output 05/19/22 05/20/22 05/20/22 18:59 06:59 18:59 Intake Total 360 Output Total 300 Balance 60 Weight 104.326 kg Intake: Oral 360 Output: Urine 300 Other: Voiding Method Toilet Toilet Toilet # Voids 2 2 - Exam The patient is currently on room air oxygen and he is awake and alert and communicating. No focal neurological deficits. In fact, he looks great and he doesn't look toxic at all. The patient appeared well nourished and normally developed. Vital signs as documented. Head exam is unremarkable. No scleral icterus or corneal arcus noted. Neck is without jugular venous distension, thyromegaly, or carotid bruits. Carotid upstrokes are brisk bilaterally. Lungs are clear to auscultation and percussion. Cardiac exam reveals the PMI to be normally sized and situated. Rhythm is regular. First and second heart sounds normal. No murmurs, rubs or gallops. Abdominal exam reveals normal bowel sounds, no masses, no organomegaly and no aortic enlargement. Extremities are nonedematous and both femoral and pedal pulses are normal.Examination of the skin revealed no evidence of significant rashes, suspicious appearing nevi or other concerning lesions.Neurologically, the patient is awake and alert and the patient does not have any focal neurological deficit. Cranial nerves are essentially intact. In the patient is a pacemaker pocket over the left anterior chest area. - Labs CBC & Chem 7: 05/20/22 07:46 05/20/22 07:46 Labs: Abnormal Lab Results - Last 24 Hours (Table) 05/19/22 05/19/22 05/20/22 Range/Units 11:04 16:21 07:46 RBC 3.01 L (4.30-5.90) m/uL Hgb 9.3 L (13.0-17.5) gm/dL Hct 28.7 L (39.0-53.0) % Lymphocytes # 0.5 L (1.0-4.8) k/uL BUN (9-20) mg/dL Creatinine (0.66-1.25) mg/dL POC Glucose (mg/dL) 66 L (70-110) mg/dL Calcium (8.4-10.2) mg/dL Total Protein (6.3-8.2) g/dL Albumin (3.5-5.0) g/dL Procalcitonin >100.00 H (0.02-0.09) ng/mL 05/20/22 Range/Units 07:46 RBC (4.30-5.90) m/uL Hgb (13.0-17.5) gm/dL Hct (39.0-53.0) % Lymphocytes # (1.0-4.8) k/uL BUN 33 H (9-20) mg/dL Creatinine 2.27 H (0.66-1.25) mg/dL POC Glucose (mg/dL) (70-110) mg/dL Calcium 8.0 L (8.4-10.2) mg/dL Total Protein 5.3 L (6.3-8.2) g/dL Albumin 2.8 L (3.5-5.0) g/dL Procalcitonin (0.02-0.09) ng/mL Microbiology - Last 24 Hours (Table) 05/19/22 20:36 Sputum Culture - Preliminary Sputum 05/19/22 12:12 Urine Culture - Preliminary Urine,Voided 05/18/22 15:00 Blood Culture - Preliminary Blood No Growth after 24 hours 05/18/22 14:57 Blood Culture - Preliminary Blood No Growth after 24 hours Assessment and Plan Plan: Sepsis. The patient had a acute septic event and the pro calcitonin level was significantly elevated and the patient was febrile. Nevertheless, the exact source of the infection is not clear. It could be an acute cholecystitis. General surgery has been consulted. Patient is doing extremely well for now. She is afebrile. Hemodynamically stable. No significant leukocytosis. Note that his underlying CML. Acute febrile illness, under investigation. The patient presented with fever and hypotension and hypoxemia. Note that he is much improved and is back to his normal. Is currently on room air oxygen. Normal mentation. No focal neurological deficits. No evidence of any pneumonia. Acute on chronic kidney injury, as the patient has chronic stage III kidney disease , creatinine is improving History of CML maintained on Gleevec on outpatient basis Sick sinus syndrome and the patient has a pacemaker in place Diabetes mellitus type 2 Hypertension Hyperlipidemia Gout Hypothyroidism Obstructive sleep apnea and the patient has undergone a previous UPPP Prostate cancer with a previous prostatectomy Cholelithiasis without signs of any acute cholecystitis Anemia of chronic disease Plan Monitor fever pattern Monitor blood pressure Nephrology consultation Check pro calcitonin level is extremely elevated supporting diagnosis of an underlying sepsis Questionable cholecystitis and general surgery consultation been obtained. LFTs are negative. There is some thickening of the gallbladder wall. cultures are negative Amylase and lipase are within normal limits Ultrasound the gallbladder are noted Check a d-dimer, if elevated, do Dopplers of the lower extremities and a Doppler of the lower extremity is were negative We'll continue to follow. Possible need for cholecystectomy
[2022-05-20] MEDS ORDERED: ONDANSETRON 4 MG/2 ML VIAL IVP ONE (15:40)
[2022-05-20] MEDS ORDERED: LACTATED RINGERS 1,000 ML IV ONE (15:40)
[2022-05-20] MEDS ORDERED: DEXAMETHASONE SOD PHOSPHATE 4 MG/ML 1 ML VIAL IVP ONE (15:40)
[2022-05-20] MEDS ORDERED: ONDANSETRON 4 MG/2 ML VIAL ONE (15:44)
[2022-05-20 15:49] LABS: Glucose,Whole Blood 77 mg/dL (70-110)
[2022-05-20] MEDS ORDERED: PROPOFOL 10 MG/ML 20 ML VIAL IV ONE (16:25)
[2022-05-20] MEDS ORDERED: ROCURONIUM 10 MG/ML (5 ML VIAL) IV ONE (16:25)
[2022-05-20] MEDS ORDERED: fentaNYL (PF) 50 MCG/ML 2 ML AMP ONE (16:25)
[2022-05-20] MEDS ORDERED: GLYCOPYRROLATE 0.2 MG/ML 2 ML VIAL ONE (16:25)
[2022-05-20] MEDS ORDERED: SUCCINYLCHOLINE CHLORIDE 200 MG/10 ML VIAL IV ONE (16:25)
[2022-05-20] MEDS ORDERED: MIDAZOLAM 2 MG/2 ML VIAL ONE (16:25)
[2022-05-20] MEDS ORDERED: LIDOCAINE 2% INJ 20 MG/ML (2 ML VIAL) ONE (16:25)
[2022-05-20] MEDS ORDERED: NEOSTIGMINE 1 MG/ML 10 ML VIAL ONE (16:25)
[2022-05-20] MEDS ORDERED: BUPIVACAIN-EPI 0.25%-1:200,000 30 ML VIAL SQ ONE (16:32)
[2022-05-20] MEDS ORDERED: ONDANSETRON 4 MG/2 ML VIAL IVP PRN (17:17)
--- NOTE | 2022-05-20 17:20 | P.OP ---
Date of Procedure: 05/20/22 Preoperative Diagnosis: Acute cholecystitis Postoperative Diagnosis: Acute purulent cholecystitis with empyema of gallbladder Procedure(s) Performed: Laparoscopic cholecystectomy with drain placement Anesthesia: ILIA Surgeon: Uche Garcia Estimated Blood Loss (ml): 10 Pathology: other (Gallbladder) Condition: stable Disposition: PACU Operative Findings: Severe cholecystitis with empyema and purulent gallbladder wall Description of Procedure: The patient was placed on the operating table. The patient received a general endotracheal tube anesthesia. The patients abdomen was prepped and draped in the usual sterile fashion. Through an infraumbilical stab incision, the fascia of the anterior abdominal wall was grasped with a pair of Kochers and then the Veress needle was placed in the peritoneal cavity. Position of the Veress needle was confirmed with positive drop test. The abdomen was then insufflated. After adequate insufflation, the 10 mm trocar was placed in the peritoneal cavity. Following this the laparoscope was placed in the peritoneal cavity. The patient was placed in the head-up, right side up position and then a 5 mm trocar was placed in the right lateral and right subcostal position under direct visualization. A 8 mm trocar was placed in the epigastric position. The gallbladder was grasped in the fundus and infundibulum. Traction on the gallbladder was placed in the lateral and the cephalad positions. The triangle of Calot was visualized.. The cystic duct was bluntly dissected until the union of the cystic duct and common bile duct was seen. A critical view of safety was achieved. The cystic duct was then divided and sealed with the Harmonic scissors. A PDS Endoloop was then placed throughout the cystic duct stump. The cystic artery divided and sealed with the Harmonic scissors. The gallbladder was then removed from the liver bed using Harmonic scissors. The gallbladder was then extracted through the epigastric port site. Operative field was checked for any bleeding spots and Harmonic scissors was used to coagulate the liver bed. The abdomen was irrigated. A BRITTANIE drain is placed in the gallbladder fossa and brought out through the right lateral 5 mm trocar site. The trocars were removed. The skin was closed using interrupted 3-0 Vicryl suture. Dermabond dressing were applied. The patient tolerated the procedure well.
[2022-05-20] MEDS: HYDROmorphone 1 MG/ML 1 ML SYRINGE IVP PRN ×2 (18:18→21:25)
[2022-05-20] MEDS: LORATADINE 10 MG TAB PO SCH (19:54)
[2022-05-20] MEDS: CHOLECALCIFEROL 25 MCG (1000 IU) TABLET PO SCH (19:54)
[2022-05-20] MEDS: HYDROcodone/APAP 7.5-325MG 1 EACH TAB PO PRN (19:54)
[2022-05-20] MEDS: PANTOPRAZOLE 40 MG TABLET PO SCH (19:54)
[2022-05-20 20:07] LABS: Glucose,Whole Blood 117 mg/dL (70-110)
[2022-05-20] MEDS: IMATINIB MESYLATE 100 MG PO SCH (20:40)
[2022-05-21 05:41] LABS: Glucose,Whole Blood 210 mg/dL (70-110)
[2022-05-21 06:36] LABS: Basophils % (A) 0 %; Eosinophils % (A) 0 %; HCT 31.6 % (39.0-53.0); HGB 10.4 gm/dL (13.0-17.5); Lymphocytes # (A) 0.3 k/uL (1.0-4.8); Lymphocytes % (A) 5 %; MCH 31.7 pg (25.0-35.0); MCV 96.2 fL (80.0-100.0); Mean Platelet Volume 8.6; Monocytes # (A) 0.3 k/uL (0-1.0); Monocytes % (A) 4 %; Neutrophils # (A) 6.5 k/uL (1.3-7.7); Neutrophils % (A) 90 %; Platelet Count 204 k/uL (150-450); RBC 3.28 m/uL (4.30-5.90); RDW 12.8 % (11.5-15.5); WBC 7.1 k/uL (3.8-10.6)
[2022-05-21] MEDS: INSULIN ASPART (NovoLOG) 100 UNIT/ML VIAL SQ SCH ×4 (06:38→20:19)
[2022-05-21] MEDS: HYDROcodone/APAP 7.5-325MG 1 EACH TAB PO PRN ×3 (06:42→20:07)
[2022-05-21] MEDS: LEVOTHYROXINE 88 MCG TAB PO SCH (07:03)
[2022-05-21 07:04] LABS: Albumin 2.9 g/dL (3.5-5.0); Calcium 8.4 mg/dL (8.4-10.2); Potassium 5.4 mmol/L (3.5-5.1); Total Bilirubin 0.5 mg/dL (0.2-1.3); Total Protein 5.5 g/dL (6.3-8.2)
--- NOTE | 2022-05-21 09:29 | P.PN ---
Progress Note - Text Progress Note Date: 05/21/22 Patient's postoperative day 1 from laparoscopic ostectomy for acute purulent cholecystitis. Patient feels well overall. He denies a significant abdominal pain. On exam vital signs are stable. Abdomen soft. BRITTANIE drain has some serosanguineous drainage. The patient will continue receive IV in divided. We discussed the discharge home tomorrow.
[2022-05-21] MEDS: PIPERACILLIN-TAZOBACTAM 3.375 GM in SODIUM CHLORIDE 0.9% 100 ML IVPB SCH ×3 (09:48→23:35)
[2022-05-21] MEDS: OXYBUTYNIN CHLORIDE 5 MG TAB PO SCH ×3 (09:48→20:07)
[2022-05-21] MEDS: allopurinoL 300 MG TAB PO SCH (09:48)
[2022-05-21] MEDS: ENOXAPARIN 40 MG/0.4 ML SYRINGE SQ SCH (09:48)
[2022-05-21] MEDS: ASPIRIN 81 MG PO SCH (09:48)
[2022-05-21] MEDS: atenoloL 25 MG TAB PO SCH (09:48)
[2022-05-21] MEDS: IMATINIB MESYLATE 100 MG PO SCH (10:07)
--- NOTE | 2022-05-21 10:24 | P.PN ---
Subjective Progress Note Date: 05/21/22 This is a 76-year-old male patient with known history of CML, who was hospitalized yesterday because of fever, difficulty breathing and altered mentation. On initial presentation to the emergency, the patient had a temperature of 103.1. He was also hypotensive with a systolic blood pressure is low as in the 60s. Apparently the patient was also profoundly hypoxic on a nonrebreather fullface mask 15 L at time of admission. He was having difficulty breathing for a couple of days and he was started on outpatient antibiotics for symptoms of bronchitis. He continued to decline for that reason he came into the emergency department. In the ED, the patient was found to have a white cell count of 6 with a hemoglobin of 10.1 and a platelet count of 167. The BAL was 29 with a creatinine of 2.1 and a sodium level of 138. Normal coagulation profile. He has 5% lymphocytosis on his CBC with a 93% neutrophilia. His lactic acid level was at 2.5. He had a UA that was essentially showing for WBCs and 5 RBCs, and influenza screen and Covid 19 screen were all negative. The patient accordingly was admitted and started on broad-spectrum antibiotics. In the emergency, the patient was given a chest x-ray that showed increased interstitial markings bilaterally. Some prominence of the right hilum e specially in the infrahilar region. The patient has a pacemaker over the left anterior chest area. No clearcut consolidations or airspace disease. Since his admission, the patient's mental status improved and currently is back to his baseline. Is currently on IV Zosyn. Cultures have been sent and is also still pending for now. His proBNP level was 8520. Normal LFTs. Lactic acid levels improved and is currently down to 1.2. Pro-calcitonin has not been checked. Noted the patient has a component of chronic kidney disease and his creatinine is on the rise and currently in today's evaluation is up to 2.9. Note that he was hypotensive at the time of admission and currently is normotensive. His blood pressure currently is still soft at 86/51. He is currently on IV fluids and he was receiving normal saline at 75 mL an hour. IV fluids was consistent discontinued by the primary care team. The patient was taken Omnicef on an outpatient basis. As far as his CML, the patient was receiving Gleevec 300 mg by mouth daily on a daily basis on outpatient basis. Note that the patient was also had [facility] few days back complaining of abdominal pain and he was given a CAT scan of the abdomen and pelvis that revealed cholelithiasis and there was no findings of an acute cholecystitis. In terms of his cardiac situation, the patient has history of sick sinus syndrome and the patient has a permanent pacemaker in place. The most recent echocardiogram available is from February 2021 and the patient back then had a left ventricular ejection fraction was normal without any significant valvular abnormalities. He is known to have obstructive sleep apnea. He has undergone previous UPPP. His other comorbid conditions include diabetes mellitus type 2, chronic stage III kidney disease, hypertension, hyperlipidemia along with history of CLL. On 05/20/2022, no new complaints and the patient is doing well. The patient is afebrile. White suppositive 5.2. Normal LFTs. D-dimer was slightly elevated at 7.08. Based on that, ultrasound with Doppler of the lower extremity was done and showed no evidence of any DVT. Patient also underwent an ultrasound the right upper quadrant that showed no evidence of any sonographic Plaza size, common bile duct was within normal limits, there was hepatomegaly and cholelithiasis with wall thickening on the images. The patient's echoes at 5.2 with a hemoglobin of 9.3. BUN is 33 with a creatinine of 2.2. No respirat ory difficulties and the patient is currently on room air oxygen. Or 2022, the patient is post laparoscopic cholecystectomy. The patient is postop day #1. BRITTANIE drain has some serosanguineous drainage. Otherwise, no other complaints and the patient is currently on room air oxygen. Pulse ox 96%. Afebrile. Hemodynamically stable. Previous echoes at 7.0 with a hemoglobin of 10.4 and a platelet count of 204. BUN is 36 with a creatinine of 1.9 and a sodium level is 136. Objective - Vital Signs Vital signs: Vital Signs Temp 98.1 F 05/21/22 08:00 Pulse 56 L 05/21/22 08:00 Resp 18 05/21/22 08:00 BP 143/70 05/21/22 08:00 Pulse Ox 96 05/21/22 08:00 FiO2 Intake & Output 05/20/22 05/21/22 05/21/22 18:59 06:59 18:59 Intake Total 800 Output Total 20 0 Balance 780 0 Intake: IV 800 Oral 0 Output: Drainage 20 Abdomen 20 Stool 0 Other: Voiding Method Toilet Toilet # Voids 2 1 - Exam The patient is currently on room air oxygen and he is awake and alert and communicating. No focal neurological deficits. In fact, he looks great and he doesn't look toxic at all. The patient appeared well nourished and normally developed. Vital signs as documented. Head exam is unremarkable. No scleral icterus or corneal arcus noted. Neck is without jugular venous distension, thyromegaly, or carotid b ruits. Carotid upstrokes are brisk bilaterally. Lungs are clear to auscultation and percussion. Cardiac exam reveals the PMI to be normally sized and situated. Rhythm is regular. First and second heart sounds normal. No murmurs, rubs or gallops. Abdominal exam is soft and the surgical one-sided striking and intact and the patient has a BRITTANIE drain in place. Extremities are nonedematous and both femoral and pedal pulses are normal.Examination of the skin revealed no evidence of significant rashes, suspicious appearing nevi or other concerning lesions.Neurologically, the patient is awake and alert and the patient does not have any focal neurological deficit. Cranial nerves are essentially intact. In the patient is a pacemaker pocket over the left anterior chest area. - Labs CBC & Chem 7: 05/21/22 05:50 05/21/22 05:50 Labs: Abnormal Lab Results - Last 24 Hours (Table) 05/20/22 05/21/22 05/21/22 Range/Units 20:05 05:37 05:50 RBC 3.28 L (4.30-5.90) m/uL Hgb 10.4 L (13.0-17.5) gm/dL Hct 31.6 L (39.0-53.0) % Lymphocytes # 0.3 L (1.0-4.8) k/uL Sodium (137-145) mmol/L Potassium (3.5-5.1) mmol/L Carbon Dioxide (22-30) mmol/L BUN (9-20) mg/dL Creatinine (0.66-1.25) mg/dL Glucose (74-99) mg/dL POC Glucose (mg/dL) 117 H 210 H (70-110) mg/dL Total Protein (6.3-8.2) g/dL Albumin (3.5-5.0) g/dL 05/21/22 Range/Units 05:50 RBC (4.30-5.90) m/uL Hgb (13.0-17.5) gm/dL Hct (39.0-53.0) % Lymphocytes # (1.0-4.8) k/uL Sodium 136 L (137-145) mmol/L Potassium 5.4 H (3.5-5.1) mmol/L Carbon Dioxide 21 L (22-30) mmol/L BUN 36 H (9-20) mg/dL Creatinine 1.99 H (0.66-1.25) mg/dL Glucose 218 H (74-99) mg/dL POC Glucose (mg/dL) (70-110) mg/dL Total Protein 5.5 L (6.3-8.2) g/dL Albumin 2.9 L (3.5-5.0) g/dL Microbiology - Last 24 Hours (Table) 05/19/22 12:12 Urine Culture - Final Urine,Voided 05/18/22 15:00 Blood Culture - Preliminary Blood No Growth after 48 hours 05/18/22 14:57 Blood Culture - Preliminary Blood No Growth after 48 hours 05/19/22 20:36 Gram Stain - Preliminary Sputum Sputum Culture - Preliminary Assessment and Plan Plan: Acute cholecystitis, post cholecystectomy and the patient is postop day #1, BRITTANIE drain is in place, and without evidence stable on regular diet Sepsis. The patient had a acute septic event and the pro calcitonin level was significantly elevated and the patient was febrile. Acute febrile illness, recovered Acute on chronic kidney injury, as the patient has chronic stage III kidney disease , creatinine is improving History of CML maintained on Gleevec on outpatient basis Sick sinus syndrome and the patient has a pacemaker in place Diabetes mellitus type 2 Hypertension Hyperlipidemia Gout Hypothyroidism Obstructive sleep apnea and the patient has undergone a previous UPPP Prostate cancer with a previous prostatectomy Cholelithiasis without signs of any acute cholecystitis Anemia of chronic disease Plan She is mobility Provide the patient incentive spirometer Gradually advance diet as tolerated Keep BRITTANIE drain in place and output is serosanguineous Monitor fever pattern Monitor blood pressure Will FU
[2022-05-21 12:02] LABS: Glucose,Whole Blood 206 mg/dL (70-110)
--- NOTE | 2022-05-21 13:07 | P.PN ---
Subjective Progress Note Date: 05/21/22 Vinicio Lucas, is a 76 year old male who presented to [facility] with a chief complaint of fever and difficulty breathing, patient was recently seen at [facility] emergency room at that time he was complaining of abdominal pain computed tomography scan of the abdomen and pelvis was done and revealed evidence of cholelithiasis, otherwise no acute findings he was discharged home from the emergency room. He was evaluated in the emergency room vital examination on presentation revealed a temperature of 103.8 pulse 92 respiration 18 blood pressure 120/49 pulse ox 99% on 15 L nonrebreather mask, subsequently blood pressure dropped to 75/40 Laboratory data revealed a white blood count of 6.0 hemoglobin 10.1 platelet count 167 BUN 29 creatinine 2.14 urine analysis revealed small leukocyte esterase, negative nitrite with 4 white blood cells in high power field, influenza A and B RSV and COVID-19 PCR were all negative Testing in the emergency room revealed EKG done in the emergency room revealed sinus rhythm with first-degree AV block and right bundle branch block, chest x- ray done in emergency room revealed low lung volumes with generalized hazy appearance that would represent atelectasis versus pulmonary edema. Patient was admitted to medical floor for further evaluation and treatment, he was started on IV antibiotic in the emergency room, he was given IV bolus due to hypotension. Past medical history is significant for history of hypertension, history of hyp erlipidemia, history of [id number] diabetes mellitus, history of gout, history of prostate cancer, history of obstructive sleep apnea, history of cardiac arrhythmia was previous history of pacemaker placement, history of gastroesophageal reflux disease, and previous history of smoking On review of systems patient at this time is alert and oriented 3 in no apparent distress his fever has subsided there is no chills no headache or dizziness he is complaining of cough and complaining of shortness of breath with any activity he denies any chest pain there is no nausea or vomiting no ab dominal pain no diarrhea no blood in the stools there is no burning with urination his urine is darker no frequency or urgency and no hematuria. On 05/20/2022 patient is alert and oriented 3. Patient was found to have acute cholecystitis plans for surgical intervention today with Dr. Garcia area at this time patient is resting comfortably in bed. Patient denies chest pain or shortness of breath. Patient denies nausea vomiting or diarrhea. Patient denies any urinary burning or frequency. On 05/21/2022 patient was seen and examined on the medical floor he is alert and oriented 3 in no apparent distress he underwent laparoscopic cholecystectomy yesterday with BRITTANIE drain placement. He denies any symptoms there is no fever or chills no headache or dizziness no chest pain no shortness of breath no cough no nausea or vomiting no abdominal pain no diarrhea and no urinary symptoms, con tinue with current medications continue with IV antibiotics, will recheck in a.m.. Objective - Vital Signs Vital signs: Vital Signs Temp 98.1 F 05/21/22 08:00 Pulse 56 L 05/21/22 08:00 Resp 18 05/21/22 08:00 BP 143/70 05/21/22 08:00 Pulse Ox 96 05/21/22 08:00 FiO2 Intake & Output 05/20/22 05/21/22 05/21/22 18:59 06:59 18:59 Intake Total 800 Output Total 20 0 Balance 780 0 Intake: IV 800 Oral 0 Output: Drainage 20 Abdomen 20 Stool 0 Other: Voiding Method Toilet Toilet # Voids 2 1 - Exam In general patient is alert and oriented x 3 in no distress HEENT head normocephalic and atraumatic Neck is supple no JVD no goiter no lymphadenopathy no carotid bruit Chest examination reveals a scattered crackles bilaterally no wheezing Cardiac exam reveals regular heart sounds S1 and S2 no gallops no murmurs Abdomen is soft nontender no organomegaly with normal bowel sounds Extremity exam reveals no edema no cyanosis or clubbing Neurological examination reveals no gross focal deficits - Labs CBC & Chem 7: 05/21/22 05:50 05/21/22 05:50 Labs: Abnormal Lab Results - Last 24 Hours (Table) 05/20/22 05/20/22 05/20/22 Range/Units 07:46 07:46 20:05 RBC 3.01 L (4.30-5.90) m/uL Hgb 9.3 L (13.0-17.5) gm/dL Hct 28.7 L (39.0-53.0) % Lymphocytes # 0.5 L (1.0-4.8) k/uL Sodium (137-145) mmol/L Potassium (3.5-5.1) mmol/L Carbon Dioxide (22-30) mmol/L BUN 33 H (9-20) mg/dL Creatinine 2.27 H (0.66-1.25) mg/dL Glucose (74-99) mg/dL POC Glucose (mg/dL) 117 H (70-110) mg/dL Calcium 8.0 L (8.4-10.2) mg/dL Total Protein 5.3 L (6.3-8.2) g/dL Albumin 2.8 L (3.5-5.0) g/dL 05/21/22 05/21/22 05/21/22 Range/Units 05:37 05:50 05:50 RBC 3.28 L (4.30-5.90) m/uL Hgb 10.4 L (13.0-17.5) gm/dL Hct 31.6 L (39.0-53.0) % Lymphocytes # 0.3 L (1.0-4.8) k/uL Sodium 136 L (137-145) mmol/L Potassium 5.4 H (3.5-5.1) mmol/L Carbon Dioxide 21 L (22-30) mmol/L BUN 36 H (9-20) mg/dL Creatinine 1.99 H (0.66-1.25) mg/dL Glucose 218 H (74-99) mg/dL POC Glucose (mg/dL) 210 H (70-110) mg/dL Calcium (8.4-10.2) mg/dL Total Protein 5.5 L (6.3-8.2) g/dL Albumin 2.9 L (3.5-5.0) g/dL Microbiology - Last 24 Hours (Table) 05/19/22 12:12 Urine Culture - Final Urine,Voided 05/18/22 15:00 Blood Culture - Preliminary Blood No Growth after 48 hours 05/18/22 14:57 Blood Culture - Preliminary Blood No Growth after 48 hours 05/19/22 20:36 Gram Stain - Preliminary Sputum Sputum Culture - Preliminary Assessment and Plan Plan: Acute sepsis, as evidenced by fever of 103.8 on presentation, elevated lactic acid at 2.5, and hypotension Acute cholecystitis. Surgical intervention planned for 05/20/2022 Acute on chronic renal failure Evidence of urinary tract infection Underlying history of hypertension Underlying history of hyperlipidemia Underlying history of hypothyroidism Underlying history of [id number]-rffnmqrmw diabetes mellitus Underlying history of prostate cancer with previous surgery Underlying history of cardiac arrhythmia was history of pacemaker placement At this time patient is admitted to telemetry floor He was started on IV Levaquin in the emergency room, however patient had a possible reaction on the floor Levaquin was discontinued and patient was started on IV Zosyn Home medications reviewed and reordered. Infectious disease, surgical services, pulmonary and nephrology service is consulted Kareem ennis plan for 05/20/2022 Blood culture and urine culture were ordered For DVT prophylaxis subcu Margaret Will follow closely
--- NOTE | 2022-05-21 15:33 | P.PN ---
Subjective Progress Note Date: 05/21/22 Follow-up for acute kidney injury. Objective - Vital Signs Vital signs: Vital Signs Temp 98.0 F 05/21/22 14:00 Pulse 53 L 05/21/22 14:00 Resp 18 05/21/22 14:00 BP 131/66 05/21/22 14:00 Pulse Ox 94 L 05/21/22 14:00 FiO2 Intake & Output 05/20/22 05/21/22 05/21/22 18:59 06:59 18:59 Intake Total 800 Output Total 20 0 Balance 780 0 Intake: IV 800 Oral 0 Output: Drainage 20 Abdomen 20 Stool 0 Other: Voiding Method Toilet Toilet # Voids 2 1 - Exam No acute distress S1-S2 heard Decreased breath sounds No edema - Labs CBC & Chem 7: 05/21/22 05:50 05/21/22 05:50 Labs: Abnormal Lab Results - Last 24 Hours (Table) 05/20/22 05/21/22 05/21/22 Range/Units 20:05 05:37 05:50 RBC 3.28 L (4.30-5.90) m/uL Hgb 10.4 L (13.0-17.5) gm/dL Hct 31.6 L (39.0-53.0) % Lymphocytes # 0.3 L (1.0-4.8) k/uL Sodium (137-145) mmol/L Potassium (3.5-5.1) mmol/L Carbon Dioxide (22-30) mmol/L BUN (9-20) mg/dL Creatinine (0.66-1.25) mg/dL Glucose (74-99) mg/dL POC Glucose (mg/dL) 117 H 210 H (70-110) mg/dL Total Protein (6.3-8.2) g/dL Albumin (3.5-5.0) g/dL 05/21/22 05/21/22 Range/Units 05:50 11:59 RBC (4.30-5.90) m/uL Hgb (13.0-17.5) gm/dL Hct (39.0-53.0) % Lymphocytes # (1.0-4.8) k/uL Sodium 136 L (137-145) mmol/L Potassium 5.4 H (3.5-5.1) mmol/L Carbon Dioxide 21 L (22-30) mmol/L BUN 36 H (9-20) mg/dL Creatinine 1.99 H (0.66-1.25) mg/dL Glucose 218 H (74-99) mg/dL POC Glucose (mg/dL) 206 H (70-110) mg/dL Total Protein 5.5 L (6.3-8.2) g/dL Albumin 2.9 L (3.5-5.0) g/dL Microbiology - Last 24 Hours (Table) 05/19/22 20:36 Gram Stain - Preliminary Sputum Sputum Culture - Preliminary Violet albicans 05/19/22 12:12 Urine Culture - Final Urine,Voided 05/18/22 15:00 Blood Culture - Preliminary Blood No Growth after 48 hours 05/18/22 14:57 Blood Culture - Preliminary Blood No Growth after 48 hours Assessment and Plan Assessment: #1 acute kidney injury nonoliguric secondary to hemodynamic ATN #2 chronic kidney disease stage III. With a baseline creatinine of 1.6-1.8 MG per DL secondary to diabetic nephropathy #3 acute cholecystitis #4 history of CML #5 hypotensive episodes Plan: #1 Renal function improving. #2 continue to hold Cozaar for now. #3 daily labs
--- NOTE | 2022-05-21 16:43 | P.PN ---
Subjective Progress Note Date: 05/20/22 Principal diagnosis: Fever/cholecystitis Patient is a 76-year-old male with a past medical his significant for diabetes mellitus hypertension hyperlipidemia sleep apnea CML presenting to the ER for evaluation of increasing shortness of breath, initially concern for poss ible pneumonia subsequently the patient did have a abnormal ultrasound suspicious for cholecystitis Gen. surgery has seen the patient and plan for cholecystectomy this afternoon. On today's evaluation head that is 05/21/2019, the patient is afebrile the patient is breathing comfortably on room air, denies having any chest pain or shortness with occasional cough no abdominal pain no nausea no vomiting and no diarrhea Objective - Vital Signs Vital signs: Vital Signs Temp 98.4 F 05/20/22 04:00 Pulse 62 05/20/22 04:00 Resp 16 05/20/22 04:00 BP 119/62 05/20/22 04:00 Pulse Ox 95 05/20/22 04:00 FiO2 Intake & Output 05/19/22 05/20/22 05/20/22 18:59 06:59 18:59 Intake Total 360 Output Total 300 Balance 60 Weight 104.326 kg Intake: Oral 360 Output: Urine 300 Other: Voiding Method Toilet Toilet # Voids 2 - Exam GENERAL DESCRIPTION: An elderly male lying in bed in no distress RESPIRATORY SYSTEM: Unlabored breathing , decreased breath sounds at bases HEART: S1 S2 regular rate and rhythm , ABDOMEN: Soft , no tenderness EXTREMITIES: No edema feet - Labs CBC & Chem 7: 05/21/22 05:50 05/21/22 05:50 Labs: Abnormal Lab Results - Last 24 Hours (Table) 05/19/22 05/19/22 05/19/22 Range/Units 07:55 07:55 11:04 RBC 2.99 L (4.30-5.90) m/uL Hgb 9.3 L (13.0-17.5) gm/dL Hct 29.3 L (39.0-53.0) % Neutrophils # 8.8 H (1.3-7.7) k/uL Lymphocytes # 0.7 L (1.0-4.8) k/uL D-Dimer (<0.60) mg/L FEU BUN 34 H (9-20) mg/dL Creatinine 2.96 H (0.66-1.25) mg/dL Glucose 73 L (74-99) mg/dL POC Glucose (mg/dL) (70-110) mg/dL Calcium 8.0 L (8.4-10.2) mg/dL Total Protein 5.3 L (6.3-8.2) g/dL Albumin 2.9 L (3.5-5.0) g/dL Procalcitonin >100.00 H (0.02-0.09) ng/mL 05/19/22 05/19/22 05/19/22 Range/Units 11:09 11:38 16:21 RBC (4.30-5.90) m/uL Hgb (13.0-17.5) gm/dL Hct (39.0-53.0) % Neutrophils # (1.3-7.7) k/uL Lymphocytes # (1.0-4.8) k/uL D-Dimer 7.08 H (<0.60) mg/L FEU BUN (9-20) mg/dL Creatinine (0.66-1.25) mg/dL Glucose (74-99) mg/dL POC Glucose (mg/dL) 65 L 66 L (70-110) mg/dL Calcium (8.4-10.2) mg/dL Total Protein (6.3-8.2) g/dL Albumin (3.5-5.0) g/dL Procalcitonin (0.02-0.09) ng/mL Microbiology - Last 24 Hours (Table) 05/19/22 20:36 Sputum Culture - Preliminary Sputum 05/19/22 12:12 Urine Culture - Preliminary Urine,Voided 05/18/22 15:00 Blood Culture - Preliminary Blood No Growth after 24 hours 05/18/22 14:57 Blood Culture - Preliminary Blood No Growth after 24 hours Assessment and Plan (1) Sepsis Current Visit: Yes Status: Acute Code(s): A41.9 - SEPSIS, UNSPECIFIED ORGANISM SNOMED Code(s): 38650875 (2) Cholecystitis Current Visit: Yes Status: Acute Code(s): K81.9 - CHOLECYSTITIS, UNSPECIFIED SNOMED Code(s): 50910789 Plan: 1patient presented to hospital with fever some mental status changes also increasing shortness of breath and cough chest x-ray did show some haziness did not mention any consolidation the patient also was complaining of abdominal pain to the other facility with the patient did have a CT that was negative for any cholecystitis however ultrasound here is suspicious for cholecystitis and general surgery has been consulted, and plan for cholecystectomy this afternoon 2patient to continue with the Zosyn, requesting OR cultures at time of surgery Time with Patient: Less than 30
[2022-05-21 16:45] LABS: Glucose,Whole Blood 163 mg/dL (70-110)
--- NOTE | 2022-05-21 16:45 | P.PN ---
Subjective Progress Note Date: 05/21/22 Principal diagnosis: Fever/cholecystitis Patient is a 76-year-old male with a past medical his significant for diabetes mellitus hypertension hyperlipidemia sleep apnea CML presenting to the ER for evaluation of increasing shortness of breath, initially concern for poss ible pneumonia subsequently the patient did have a abnormal ultrasound suspicious for cholecystitis Gen. surgery has seen the patient patient is status post cholecystectomy 05/20/2022 with evidence of empyema of the gallbladder On today's evaluation head that is 05/21/2022, the patient remains to be afebrile the patient is breathing comfortably on room air, the patient denies having any chest pain or shortness with occasional cough, the patient abdominal pain is currently controlled no nausea no vomiting or diarrhea Objective - Vital Signs Vital signs: Vital Signs Temp 98.1 F 05/21/22 08:00 Pulse 56 L 05/21/22 08:00 Resp 18 05/21/22 08:00 BP 143/70 05/21/22 08:00 Pulse Ox 96 05/21/22 08:00 FiO2 Intake & Output 05/20/22 05/21/22 05/21/22 18:59 06:59 18:59 Intake Total 800 Output Total 20 0 Balance 780 0 Intake: IV 800 Oral 0 Output: Drainage 20 Abdomen 20 Stool 0 Other: Voiding Method Toilet Toilet # Voids 2 1 - Exam GENERAL DESCRIPTION: An elderly male lying in bed in no distress RESPIRATORY SYSTEM: Unlabored breathing , decreased breath sounds at bases HEART: S1 S2 regular rate and rhythm , ABDOMEN: Soft , no tenderness EXTREMITIES: No edema feet - Labs CBC & Chem 7: 05/21/22 05:50 05/21/22 05:50 Labs: Abnormal Lab Results - Last 24 Hours (Table) 05/20/22 05/21/22 05/21/22 Range/Units 20:05 05:37 05:50 RBC 3.28 L (4.30-5.90) m/uL Hgb 10.4 L (13.0-17.5) gm/dL Hct 31.6 L (39.0-53.0) % Lymphocytes # 0.3 L (1.0-4.8) k/uL Sodium (137-145) mmol/L Potassium (3.5-5.1) mmol/L Carbon Dioxide (22-30) mmol/L BUN (9-20) mg/dL Creatinine (0.66-1.25) mg/dL Glucose (74-99) mg/dL POC Glucose (mg/dL) 117 H 210 H (70-110) mg/dL Total Protein (6.3-8.2) g/dL Albumin (3.5-5.0) g/dL 05/21/22 05/21/22 Range/Units 05:50 11:59 RBC (4.30-5.90) m/uL Hgb (13.0-17.5) gm/dL Hct (39.0-53.0) % Lymphocytes # (1.0-4.8) k/uL Sodium 136 L (137-145) mmol/L Potassium 5.4 H (3.5-5.1) mmol/L Carbon Dioxide 21 L (22-30) mmol/L BUN 36 H (9-20) mg/dL Creatinine 1.99 H (0.66-1.25) mg/dL Glucose 218 H (74-99) mg/dL POC Glucose (mg/dL) 206 H (70-110) mg/dL Total Protein 5.5 L (6.3-8.2) g/dL Albumin 2.9 L (3.5-5.0) g/dL Microbiology - Last 24 Hours (Table) 05/19/22 20:36 Gram Stain - Preliminary Sputum Sputum Culture - Preliminary Violet albicans 05/19/22 12:12 Urine Culture - Final Urine,Voided 05/18/22 15:00 Blood Culture - Preliminary Blood No Growth after 48 hours 05/18/22 14:57 Blood Culture - Preliminary Blood No Growth after 48 hours Assessment and Plan (1) Cholecystitis Current Visit: Yes Status: Acute Code(s): K81.9 - CHOLECYSTITIS, UNSPECIFIED SNOMED Code(s): 64814696 Plan: 1patient presented to hospital with fever some mental status changes also increasing shortness of breath and cough chest x-ray did show some haziness did not mention any consolidation the patient also was complaining of abdominal pain to the other facility with the patient did have a CT that was negative for any cholecystitis however ultrasound here is suspicious for cholecystitis patient is status post laparoscopic cholecystectomy 05/20/2022 with evidence of empyema of the gallbladder 2patient to continue with the Zosyn, and we'll monitor his clinical course closely Time with Patient: Less than 30
[2022-05-21] MEDS: LORATADINE 10 MG TAB PO SCH (20:07)
[2022-05-21] MEDS: CHOLECALCIFEROL 25 MCG (1000 IU) TABLET PO SCH (20:08)
[2022-05-21 20:11] LABS: Glucose,Whole Blood 211 mg/dL (70-110)
[2022-05-21] MEDS: PANTOPRAZOLE 40 MG TABLET PO SCH (20:42)
[2022-05-22 05:31] LABS: Glucose,Whole Blood 177 mg/dL (70-110)
[2022-05-22] MEDS: INSULIN ASPART (NovoLOG) 100 UNIT/ML VIAL SQ SCH ×4 (06:38→21:31)
[2022-05-22] MEDS: LEVOTHYROXINE 88 MCG TAB PO SCH (06:38)
[2022-05-22] MEDS: OXYBUTYNIN CHLORIDE 5 MG TAB PO SCH ×3 (08:18→21:24)
[2022-05-22] MEDS: ASPIRIN 81 MG PO SCH (08:18)
[2022-05-22] MEDS: atenoloL 25 MG TAB PO SCH (08:18)
[2022-05-22] MEDS: PIPERACILLIN-TAZOBACTAM 3.375 GM in SODIUM CHLORIDE 0.9% 100 ML IVPB SCH ×2 (08:18→17:48)
[2022-05-22] MEDS: allopurinoL 300 MG TAB PO SCH (08:18)
[2022-05-22] MEDS: ENOXAPARIN 40 MG/0.4 ML SYRINGE SQ SCH (08:19)
[2022-05-22] MEDS: IMATINIB MESYLATE 100 MG PO SCH (08:20)
[2022-05-22 09:13] LABS: African American GFR (CKD) 36.5 (60.0-200.0); Albumin 3.1 g/dL (3.8-4.9); Albumin/Globulin Ratio 1.48 (1.60-3.17); Anion Gap 4.9 mmol/L (10.00-18.00); BUN/Creat Ratio 16.05 Ratio (12.00-20.00); Blood Urea Nitrogen 32.1 mg/dL (9.0-27.0); Calcium 8.9 mg/dL (8.7-10.3); Carbon Dioxide 26.1 mmol/L (20.0-27.5); Globulin 2.1 g/dL (1.6-3.3); Non-African American GFR(CKD) 31.5 (60.0-200.0); Potassium 5.1 mmol/L (3.5-5.5); Total Bilirubin 0.3 mg/dL (0.30-1.20); Total Protein 5.2 g/dL (6.2-8.2)
[2022-05-22 09:23] LABS: Basophils # (A) 0.03 X 10*3/uL (0.00-0.10); Basophils % (A) 0.3 %; Eosinophils # (A) 0.12 X 10*3/uL (0.04-0.35); Eosinophils % (A) 1.4 %; HCT 27.3 % (39.6-50.0); HGB 8.8 g/dL (13.0-17.0); Immature Grans, Automated 0.3 %; Lymphocytes # (A) 0.84 X 10*3/uL (0.90-5.00); Lymphocytes % (A) 9.6 %; MCH 30.7 pg (27.0-32.0); MCHC 32.2 g/dL (32.0-37.0); MCV 95.1 fL (80.0-97.0); Mean Platelet Volume 11.4 fL (9.5-12.2); Monocytes # (A) 0.57 X 10*3/uL (0.20-1.00); Monocytes % (A) 6.5 %; NRBC Per 100 WBC 0 /100 WBCS (0.0-0.0); Neutrophils % (A) 81.9 %; Platelet Count 222 X 10*3/uL (140-440); RBC 2.87 X 10*6/uL (4.40-5.60); RDW 12.7 % (11.5-14.5); WBC 8.79 X 10*3/uL (4.50-10.00)
--- NOTE | 2022-05-22 10:34 | P.PN ---
Subjective Progress Note Date: 05/22/22 Vinicio Lucas, is a 76 year old male who presented to [facility] with a chief complaint of fever and difficulty breathing, patient was recently seen at [facility] emergency room at that time he was complaining of abdominal pain computed tomography scan of the abdomen and pelvis was done and revealed evidence of cholelithiasis, otherwise no acute findings he was discharged home from the emergency room. He was evaluated in the emergency room vital examination on presentation revealed a temperature of 103.8 pulse 92 respiration 18 blood pressure 120/49 pulse ox 99% on 15 L nonrebreather mask, subsequently blood pressure dropped to 75/40 Laboratory data revealed a white blood count of 6.0 hemoglobin 10.1 platelet count 167 BUN 29 creatinine 2.14 urine analysis revealed small leukocyte esterase, negative nitrite with 4 white blood cells in high power field, influenza A and B RSV and COVID-19 PCR were all negative Testing in the emergency room revealed EKG done in the emergency room revealed sinus rhythm with first-degree AV block and right bundle branch block, chest x- ray done in emergency room revealed low lung volumes with generalized hazy appearance that would represent atelectasis versus pulmonary edema. Patient was admitted to medical floor for further evaluation and treatment, he was started on IV antibiotic in the emergency room, he was given IV bolus due to hypotension. Past medical history is significant for history of hypertension, history of hyp erlipidemia, history of gwu-pmfyzqz-gfsrsrlsd diabetes mellitus, history of gout, history of prostate cancer, history of obstructive sleep apnea, history of cardiac arrhythmia was previous history of pacemaker placement, history of gastroesophageal reflux disease, and previous history of smoking On review of systems patient at this time is alert and oriented 3 in no apparent distress his fever has subsided there is no chills no headache or dizziness he is complaining of cough and complaining of shortness of breath with any activity he denies any chest pain there is no nausea or vomiting no ab dominal pain no diarrhea no blood in the stools there is no burning with urination his urine is darker no frequency or urgency and no hematuria. On 05/20/2022 patient is alert and oriented 3. Patient was found to have acute cholecystitis plans for surgical intervention today with Dr. Garcia area at this time patient is resting comfortably in bed. Patient denies chest pain or shortness of breath. Patient denies nausea vomiting or diarrhea. Patient denies any urinary burning or frequency. On 05/21/2022 patient was seen and examined on the medical floor he is alert and oriented 3 in no apparent distress he underwent laparoscopic cholecystectomy yesterday with BRITTANIE drain placement. He denies any symptoms there is no fever or chills no headache or dizziness no chest pain no shortness of breath no cough no nausea or vomiting no abdominal pain no diarrhea and no urinary symptoms, con tinue with current medications continue with IV antibiotics, will recheck in a.m.. On 05/22/2022. Patient's alert and oriented 3. Status post lap cholecystectomy. Patient reports he is passing gas but has not had bowel movement. Did discuss case with infectious disease services. Per ID would like patient to receive 1-2 more days of IV antibiotics. Patient expresses he is anxious to go home but did explain infectious disease recommendation patient is agreeable. At this time patient denies chest pain or shortness of breath. Patient denies nausea vomiting or diarrhea. Patient has been tolerating diet. Patient denies any urinary burning or frequency. Creatinine 2.0. Nephrology, infectious disease and pulmonary services are following patient remains on IV Zosyn Objective - Vital Signs Vital signs: Vital Signs Temp 97.6 F 05/22/22 01:33 Pulse 52 L 05/22/22 01:33 Resp 17 05/22/22 01:33 BP 118/61 05/22/22 01:33 Pulse Ox 97 05/22/22 01:33 FiO2 Intake & Output 05/21/22 05/22/22 05/22/22 18:59 06:59 18:59 Other: Voiding Method Toilet # Voids 3 3 - Exam In general patient is alert and oriented x 3 in no distress HEENT head normocephalic and atraumatic Neck is supple no JVD no goiter no lymphadenopathy no carotid bruit Chest examination reveals a scattered crackles bilaterally no wheezing Cardiac exam reveals regular heart sounds S1 and S2 no gallops no murmurs Abdomen is soft nontender no organomegaly with normal bowel sounds Extremity exam reveals no edema no cyanosis or clubbing Neurological examination reveals no gross focal deficits - Labs CBC & Chem 7: 05/22/22 04:21 05/22/22 04:21 Labs: Abnormal Lab Results - Last 24 Hours (Table) 05/21/22 05/21/22 05/21/22 Range/Units 11:59 16:45 20:10 POC Glucose (mg/dL) 206 H 163 H 211 H (70-110) mg/dL 05/22/22 Range/Units 05:29 POC Glucose (mg/dL) 177 H (70-110) mg/dL Microbiology - Last 24 Hours (Table) 05/18/22 15:00 Blood Culture - Preliminary Blood No Growth after 72 hours 05/18/22 14:57 Blood Culture - Preliminary Blood No Growth after 72 hours 05/19/22 20:36 Gram Stain - Preliminary Sputum Sputum Culture - Preliminary Violet albicans Assessment and Plan Plan: Acute sepsis, as evidenced by fever of 103.8 on presentation, elevated lactic acid at 2.5, and hypotension Acute cholecystitis. Status post lap cholecystectomy on 05/20/2022 Acute on chronic renal failure Evidence of urinary tract infection Underlying history of hypertension Underlying history of hyperlipidemia Underlying history of hypothyroidism Underlying history of hyb-bwjneyn-zomhxixtj diabetes mellitus Underlying history of prostate cancer with previous surgery Underlying history of cardiac arrhythmia was history of pacemaker placement At this time patient is admitted to telemetry floor He was started on IV Levaquin in the emergency room, however patient had a poss ible reaction on the floor Levaquin was discontinued and patient was started on IV Zosyn Home medications reviewed and reordered. Infectious disease, surgical services, pulmonary and nephrology service is consulted Kareem ennis plan for 05/20/2022 Blood culture and urine culture were ordered For DVT prophylaxis subcu Margaret Will follow closely
--- NOTE | 2022-05-22 10:34 | P.PN ---
Subjective Progress Note Date: 05/22/22 This is a 76-year-old male patient with known history of CML, who was hospitalized yesterday because of fever, difficulty breathing and altered mentation. On initial presentation to the emergency, the patient had a temperature of 103.1. He was also hypotensive with a systolic blood pressure is low as in the 60s. Apparently the patient was also profoundly hypoxic on a nonrebreather fullface mask 15 L at time of admission. He was having difficulty breathing for a couple of days and he was started on outpatient antibiotics for symptoms of bronchitis. He continued to decline for that reason he came into the emergency department. In the ED, the patient was found to have a white cell count of 6 with a hemoglobin of 10.1 and a platelet count of 167. The BAL was 29 with a creatinine of 2.1 and a sodium level of 138. Normal coagulation profile. He has 5% lymphocytosis on his CBC with a 93% neutrophilia. His lactic acid level was at 2.5. He had a UA that was essentially showing for WBCs and 5 RBCs, and influenza screen and Covid 19 screen were all negative. The patient accordingly was admitted and started on broad-spectrum antibiotics. In the emergency, the patient was given a chest x-ray that showed increased interstitial markings bilaterally. Some prominence of the right hilum e specially in the infrahilar region. The patient has a pacemaker over the left anterior chest area. No clearcut consolidations or airspace disease. Since his admission, the patient's mental status improved and currently is back to his baseline. Is currently on IV Zosyn. Cultures have been sent and is also still pending for now. His proBNP level was 8520. Normal LFTs. Lactic acid levels improved and is currently down to 1.2. Pro-calcitonin has not been checked. Noted the patient has a component of chronic kidney disease and his creatinine is on the rise and currently in today's evaluation is up to 2.9. Note that he was hypotensive at the time of admission and currently is normotensive. His blood pressure currently is still soft at 86/51. He is currently on IV fluids and he was receiving normal saline at 75 mL an hour. IV fluids was consistent discontinued by the primary care team. The patient was taken Omnicef on an outpatient basis. As far as his CML, the patient was receiving Gleevec 300 mg by mouth daily on a daily basis on outpatient basis. Note that the patient was also had [facility] few days back complaining of abdominal pain and he was given a CAT scan of the abdomen and pelvis that revealed cholelithiasis and there was no findings of an acute cholecystitis. In terms of his cardiac situation, the patient has history of sick sinus syndrome and the patient has a permanent pacemaker in place. The most recent echocardiogram available is from February 2021 and the patient back then had a left ventricular ejection fraction was normal without any significant valvular abnormalities. He is known to have obstructive sleep apnea. He has undergone previous UPPP. His other comorbid conditions include diabetes mellitus type 2, chronic stage III kidney disease, hypertension, hyperlipidemia along with history of CLL. On 05/20/2022, no new complaints and the patient is doing well. The patient is afebrile. White suppositive 5.2. Normal LFTs. D-dimer was slightly elevated at 7.08. Based on that, ultrasound with Doppler of the lower extremity was done and showed no evidence of any DVT. Patient also underwent an ultrasound the right upper quadrant that showed no evidence of any sonographic Plaza size, common bile duct was within normal limits, there was hepatomegaly and cholelithiasis with wall thickening on the images. The patient's echoes at 5.2 with a hemoglobin of 9.3. BUN is 33 with a creatinine of 2.2. No respirat ory difficulties and the patient is currently on room air oxygen. Or 2022, the patient is post laparoscopic cholecystectomy. The patient is postop day #1. BRITTANIE drain has some serosanguineous drainage. Otherwise, no other complaints and the patient is currently on room air oxygen. Pulse ox 96%. Afebrile. Hemodynamically stable. Previous echoes at 7.0 with a hemoglobin of 10.4 and a platelet count of 204. BUN is 36 with a creatinine of 1.9 and a sodium level is 136. 4/2022, the patient is post cholecystectomy and the patient's postop day #2. BRITTANIE drain is in place and output is serosanguineous. No fever. No chills. Remains on IV antibiotics.White cell count today is at 8.7 with a hemoglobin of 8.8 and a platelet count of 222. BUN is 32 with a creatinine of 2 and a sodium level is at 137 with a potassium level of 5.1. No bowel movement activity. He is passing flatness. Abdomen is soft. He is on room air oxygen. He is ambulating. Objective - Vital Signs Vital signs: Vital Signs Temp 98.0 F 05/22/22 08:00 Pulse 68 05/22/22 08:00 Resp 18 05/22/22 08:00 BP 142/71 05/22/22 08:00 Pulse Ox 95 05/22/22 08:00 FiO2 Intake & Output 05/21/22 05/22/22 05/22/22 18:59 06:59 18:59 Other: Voiding Method Toilet # Voids 3 3 - Exam The patient is currently on room air oxygen and he is awake and alert and communicating. No focal neurological deficits. In fact, he looks great and he doesn't look toxic at all. The patient appeared well nourished and normally developed. Vital signs as documented. Head exam is unremarkable. No scleral icterus or corneal arcus noted. Neck is without jugular venous distension, thyromegaly, or carotid bruits. Carotid upstrokes are brisk bilaterally. Lungs are clear to auscultation and percussion. Cardiac exam reveals the PMI to be normally sized and situated. Rhythm is regular. First and second heart sounds normal. No murmurs, rubs or gallops. Abdominal exam is soft and the surgical one-sided striking and intact and the patient has a BRITTANIE drain in place. Extremities are nonedematous and both femoral and pedal pulses are normal.Examination of the skin revealed no evidence of significant rashes, suspicious appearing nevi or other concerning lesions.Neurologically, the patient is awake and alert and the patient does not have any focal neurological deficit. Cranial nerves are essentially intact. In the patient is a pacemaker pocket over the left anterior chest area. - Labs CBC & Chem 7: 05/22/22 04:21 05/22/22 04:21 Labs: Abnormal Lab Results - Last 24 Hours (Table) 05/21/22 05/21/22 05/21/22 Range/Units 11:59 16:45 20:10 RBC (4.40-5.60) X 10*6/uL Hgb (13.0-17.0) g/dL Hct (39.6-50.0) % Lymphocytes # (0.90-5.00) X 10*3/uL Anion Gap (10.00-18.00) mmol/L BUN (9.0-27.0) mg/dL Creatinine (0.6-1.5) mg/dL Est GFR (CKD-EPI)AfAm (60.0-200.0) Est GFR (CKD-EPI)NonAf (60.0-200.0) Glucose (70-110) mg/dL POC Glucose (mg/dL) 206 H 163 H 211 H (70-110) mg/dL Total Protein (6.2-8.2) g/dL Albumin (3.8-4.9) g/dL Albumin/Globulin Ratio (1.60-3.17) g/dL 05/22/22 05/22/22 05/22/22 Range/Units 04:21 04:21 05:29 RBC 2.87 L (4.40-5.60) X 10*6/uL Hgb 8.8 L (13.0-17.0) g/dL Hct 27.3 L (39.6-50.0) % Lymphocytes # 0.84 L (0.90-5.00) X 10*3/uL Anion Gap 4.90 L (10.00-18.00) mmol/L BUN 32.1 H (9.0-27.0) mg/dL Creatinine 2.0 H (0.6-1.5) mg/dL Est GFR (CKD-EPI)AfAm 36.5 L (60.0-200.0) Est GFR (CKD-EPI)NonAf 31.5 L (60.0-200.0) Glucose 160 H (70-110) mg/dL POC Glucose (mg/dL) 177 H (70-110) mg/dL Total Protein 5.2 L (6.2-8.2) g/dL Albumin 3.1 L (3.8-4.9) g/dL Albumin/Globulin Ratio 1.48 L (1.60-3.17) g/dL Microbiology - Last 24 Hours (Table) 05/19/22 20:36 Gram Stain - Final Sputum Sputum Culture - Final Violet albicans 05/18/22 15:00 Blood Culture - Preliminary Blood No Growth after 72 hours 05/18/22 14:57 Blood Culture - Preliminary Blood No Growth after 72 hours Assessment and Plan Plan: Acute cholecystitis, post cholecystectomy and the patient is postop day #2, BRITTANIE drain is in place, and without evidence stable on regular diet, no bowel movement with activity., The patient is passing gas, the patient is ambulating, no significant leukocytosis, the patient does not look toxic at all. BRITTANIE drain is still in place. Sepsis. The patient had a acute septic event and the pro calcitonin level was significantly elevated and the patient was febrile. Acute febrile illness, recovered Acute on chronic kidney injury, as the patient has chronic stage III kidney disease , creatinine is improving History of CML maintained on Gleevec on outpatient basis Sick sinus syndrome and the patient has a pacemaker in place Diabetes mellitus type 2 Hypertension Hyperlipidemia Gout Hypothyroidism Obstructive sleep apnea and the patient has undergone a previous UPPP Prostate cancer with a previous prostatectomy Cholelithiasis without signs of any acute cholecystitis Anemia of chronic disease Plan Increase mobility Provide the patient incentive spirometer Gradually advance diet as tolerated Keep BRITTANIE drain in place and output is serosanguineous Monitor fever pattern Monitor blood pressure Continue IV ABX Will sign off
[2022-05-22] MEDS ORDERED: LACTULOSE 20 GM/30 ML CUP PO ONE (10:35)
--- NOTE | 2022-05-22 11:10 | P.PN ---
Progress Note - Text Progress Note Date: 05/22/22 Patient feels well. He is wanting to go home. On exam vitals are stable. Abdomen soft. BRITTANIE drain has some serosanguineous drainage. Status post laparoscopically cholecystectomy for acute cholecystitis with purulent cholecystitis. Patient will continue receive IV antibiotic. Bleed despite home tomorrow.
[2022-05-22 11:20] LABS: Glucose,Whole Blood 133 mg/dL (70-110)
[2022-05-22] MEDS: HYDROcodone/APAP 7.5-325MG 1 EACH TAB PO PRN ×2 (12:46→18:52)
--- NOTE | 2022-05-22 16:03 | P.PN ---
Subjective Progress Note Date: 05/22/22 Follow-up for acute kidney injury. Objective - Vital Signs Vital signs: Vital Signs Temp 97.8 F 05/22/22 14:00 Pulse 50 L 05/22/22 14:00 Resp 17 05/22/22 14:00 BP 124/68 05/22/22 14:00 Pulse Ox 94 L 05/22/22 14:00 FiO2 Intake & Output 05/21/22 05/22/22 05/22/22 18:59 06:59 18:59 Output Total 60 Balance -60 Output: Drainage 60 Abdomen 60 Other: Voiding Method Toilet # Voids 3 3 - Exam No acute distress S1-S2 heard Decreased breath sounds No edema - Labs CBC & Chem 7: 05/22/22 04:21 05/22/22 04:21 Labs: Abnormal Lab Results - Last 24 Hours (Table) 05/21/22 05/21/22 05/22/22 Range/Units 16:45 20:10 04:21 RBC 2.87 L (4.40-5.60) X 10*6/uL Hgb 8.8 L (13.0-17.0) g/dL Hct 27.3 L (39.6-50.0) % Lymphocytes # 0.84 L (0.90-5.00) X 10*3/uL Anion Gap (10.00-18.00) mmol/L BUN (9.0-27.0) mg/dL Creatinine (0.6-1.5) mg/dL Est GFR (CKD-EPI)AfAm (60.0-200.0) Est GFR (CKD-EPI)NonAf (60.0-200.0) Glucose (70-110) mg/dL POC Glucose (mg/dL) 163 H 211 H (70-110) mg/dL Total Protein (6.2-8.2) g/dL Albumin (3.8-4.9) g/dL Albumin/Globulin Ratio (1.60-3.17) g/dL 05/22/22 05/22/22 05/22/22 Range/Units 04:21 05:29 11:18 RBC (4.40-5.60) X 10*6/uL Hgb (13.0-17.0) g/dL Hct (39.6-50.0) % Lymphocytes # (0.90-5.00) X 10*3/uL Anion Gap 4.90 L (10.00-18.00) mmol/L BUN 32.1 H (9.0-27.0) mg/dL Creatinine 2.0 H (0.6-1.5) mg/dL Est GFR (CKD-EPI)AfAm 36.5 L (60.0-200.0) Est GFR (CKD-EPI)NonAf 31.5 L (60.0-200.0) Glucose 160 H (70-110) mg/dL POC Glucose (mg/dL) 177 H 133 H (70-110) mg/dL Total Protein 5.2 L (6.2-8.2) g/dL Albumin 3.1 L (3.8-4.9) g/dL Albumin/Globulin Ratio 1.48 L (1.60-3.17) g/dL Microbiology - Last 24 Hours (Table) 05/19/22 20:36 Gram Stain - Final Sputum Sputum Culture - Final Violet albicans 05/18/22 15:00 Blood Culture - Preliminary Blood No Growth after 72 hours 05/18/22 14:57 Blood Culture - Preliminary Blood No Growth after 72 hours Assessment and Plan Assessment: #1 acute kidney injury nonoliguric secondary to hemodynamic ATN #2 chronic kidney disease stage III. With a baseline creatinine of 1.6-1.8 MG per DL secondary to diabetic nephropathy #3 acute cholecystitis #4 history of CML #5 hypotensive episodes Plan: #1 Renal function improving. #2 continue to hold Cozaar for now. #3 daily labs
--- NOTE | 2022-05-22 16:43 | P.PN ---
Subjective Progress Note Date: 05/22/22 Principal diagnosis: Fever/cholecystitis Patient is a 76-year-old male with a past medical his significant for diabetes mellitus hypertension hyperlipidemia sleep apnea CML presenting to the ER for evaluation of increasing shortness of breath, initially concern for poss ible pneumonia subsequently the patient did have a abnormal ultrasound suspicious for cholecystitis Gen. surgery has seen the patient patient is status post cholecystectomy 05/20/2022 with evidence of empyema of the gallbladder On today's evaluation head that is 05/22/2022, the patient continues to be afebrile the patient is breathing comfortably on room air, the patient denies having any chest pain or shortness with occasional cough, the patient abdominal pain has decreased in intensity no nausea no vomiting no abdominal pain or diarrhea Objective - Vital Signs Vital signs: Vital Signs Temp 98.0 F 05/22/22 08:00 Pulse 68 05/22/22 08:00 Resp 18 05/22/22 08:00 BP 142/71 05/22/22 08:00 Pulse Ox 95 05/22/22 08:00 FiO2 Intake & Output 05/21/22 05/22/22 05/22/22 18:59 06:59 18:59 Output Total 60 Balance -60 Output: Drainage 60 Abdomen 60 Other: Voiding Method Toilet # Voids 3 3 - Exam GENERAL DESCRIPTION: An elderly male lying in bed in no distress RESPIRATORY SYSTEM: Unlabored breathing , decreased breath sounds at bases HEART: S1 S2 regular rate and rhythm , ABDOMEN: Soft , no tenderness EXTREMITIES: No edema feet - Labs CBC & Chem 7: 05/22/22 04:21 05/22/22 04:21 Labs: Abnormal Lab Results - Last 24 Hours (Table) 05/21/22 05/21/22 05/22/22 Range/Units 16:45 20:10 04:21 RBC 2.87 L (4.40-5.60) X 10*6/uL Hgb 8.8 L (13.0-17.0) g/dL Hct 27.3 L (39.6-50.0) % Lymphocytes # 0.84 L (0.90-5.00) X 10*3/uL Anion Gap (10.00-18.00) mmol/L BUN (9.0-27.0) mg/dL Creatinine (0.6-1.5) mg/dL Est GFR (CKD-EPI)AfAm (60.0-200.0) Est GFR (CKD-EPI)NonAf (60.0-200.0) Glucose (70-110) mg/dL POC Glucose (mg/dL) 163 H 211 H (70-110) mg/dL Total Protein (6.2-8.2) g/dL Albumin (3.8-4.9) g/dL Albumin/Globulin Ratio (1.60-3.17) g/dL 05/22/22 05/22/22 05/22/22 Range/Units 04:21 05:29 11:18 RBC (4.40-5.60) X 10*6/uL Hgb (13.0-17.0) g/dL Hct (39.6-50.0) % Lymphocytes # (0.90-5.00) X 10*3/uL Anion Gap 4.90 L (10.00-18.00) mmol/L BUN 32.1 H (9.0-27.0) mg/dL Creatinine 2.0 H (0.6-1.5) mg/dL Est GFR (CKD-EPI)AfAm 36.5 L (60.0-200.0) Est GFR (CKD-EPI)NonAf 31.5 L (60.0-200.0) Glucose 160 H (70-110) mg/dL POC Glucose (mg/dL) 177 H 133 H (70-110) mg/dL Total Protein 5.2 L (6.2-8.2) g/dL Albumin 3.1 L (3.8-4.9) g/dL Albumin/Globulin Ratio 1.48 L (1.60-3.17) g/dL Microbiology - Last 24 Hours (Table) 05/19/22 20:36 Gram Stain - Final Sputum Sputum Culture - Final Violet albicans 05/18/22 15:00 Blood Culture - Preliminary Blood No Growth after 72 hours 05/18/22 14:57 Blood Culture - Preliminary Blood No Growth after 72 hours Assessment and Plan (1) Cholecystitis Current Visit: Yes Status: Acute Code(s): K81.9 - CHOLECYSTITIS, UNSPECIFIED SNOMED Code(s): 15301931 Plan: 1patient presented to hospital with fever some mental status changes also increasing shortness of breath and cough chest x-ray did show some haziness did not mention any consolidation the patient also was complaining of abdominal pain to the other facility with the patient did have a CT that was negative for any cholecystitis however ultrasound here is suspicious for cholecystitis patient is status post laparoscopic cholecystectomy 05/20/2022 with evidence of empyema of the gallbladder 2patient seemed to have shown clinical improvement and will continue with the Zosyn for another 24 hour before transient oral antibiotics in the form of Augmentin, discussed with the admitting team Time with Patient: Less than 30
[2022-05-22 16:52] LABS: Glucose,Whole Blood 188 mg/dL (70-110)
[2022-05-22] MEDS: CHOLECALCIFEROL 25 MCG (1000 IU) TABLET PO SCH (21:23)
[2022-05-22] MEDS: PANTOPRAZOLE 40 MG TABLET PO SCH (21:23)
[2022-05-22] MEDS: LORATADINE 10 MG TAB PO SCH (21:23)
[2022-05-22 21:24] LABS: Glucose,Whole Blood 173 mg/dL (70-110)
[2022-05-23] MEDS: PIPERACILLIN-TAZOBACTAM 3.375 GM in SODIUM CHLORIDE 0.9% 100 ML IVPB SCH ×2 (00:33→07:59)
[2022-05-23] MEDS: HYDROcodone/APAP 7.5-325MG 1 EACH TAB PO PRN (00:33)
[2022-05-23] MEDS: INSULIN ASPART (NovoLOG) 100 UNIT/ML VIAL SQ SCH ×2 (06:13→12:17)
[2022-05-23] MEDS: LEVOTHYROXINE 88 MCG TAB PO SCH (06:13)
[2022-05-23 06:23] LABS: Glucose,Whole Blood 135 mg/dL (70-110)
[2022-05-23] MEDS: IMATINIB MESYLATE 100 MG PO SCH (07:59)
[2022-05-23] MEDS: OXYBUTYNIN CHLORIDE 5 MG TAB PO SCH (07:59)
[2022-05-23] MEDS: ASPIRIN 81 MG PO SCH (07:59)
[2022-05-23] MEDS: allopurinoL 300 MG TAB PO SCH (07:59)
[2022-05-23] MEDS: ENOXAPARIN 40 MG/0.4 ML SYRINGE SQ SCH (07:59)
[2022-05-23] MEDS: atenoloL 25 MG TAB PO SCH (08:00)
--- NOTE | 2022-05-23 11:02 | P.PN ---
Subjective Patient is seen in follow-up for acute kidney injury on chronic kidney disease. Renal function fairly stable the last 2 days. Tolerating oral intake. Hemodynamically stable. No vomiting or diarrhea. Vital signs are stable. General: No acute distress. HEENT: Head exam is unremarkable. LUNGS: No audible rhonchi or wheezes. HEART: Rate and Rhythm are regular. ABDOMEN: Soft, nontender. BRITTANIE drain noted. EXTREMITITES: No edema. Objective - Vital Signs Vital signs: Vital Signs Temp 97.5 F L 05/23/22 07:10 Pulse 50 L 05/23/22 07:10 Resp 17 05/23/22 07:10 BP 108/61 05/23/22 07:10 Pulse Ox 97 05/23/22 07:10 FiO2 Intake & Output 05/22/22 05/23/22 05/23/22 18:59 06:59 18:59 Output Total 100 20 Balance -100 -20 Output: Drainage 100 20 Abdomen 100 20 Other: Voiding Method Toilet # Voids 2 1 - Labs CBC & Chem 7: 05/22/22 04:21 05/22/22 04:21 Labs: Abnormal Lab Results - Last 24 Hours (Table) 05/22/22 05/22/22 05/22/22 Range/Units 11:18 16:50 21:22 POC Glucose (mg/dL) 133 H 188 H 173 H (70-110) mg/dL 05/23/22 Range/Units 06:12 POC Glucose (mg/dL) 135 H (70-110) mg/dL Microbiology - Last 24 Hours (Table) 05/18/22 15:00 Blood Culture - Preliminary Blood No Growth after 96 hours 05/18/22 14:57 Blood Culture - Preliminary Blood No Growth after 96 hours 05/19/22 20:36 Gram Stain - Final Sputum Sputum Culture - Final Violet albicans Assessment and Plan Plan: Assessment: 1. Acute kidney injury secondary to hemodynamic ATN. Renal function fairly stable the last 2 days. 2. Chronic kidney disease stage IIIB with baseline creatinine 1.6-1.8 secondary to diabetic kidney disease. 3. Acute cholecystitis status post cholecystectomy this admission. On antibiotics. 4. History of CML. 5. Diabetes mellitus. Plan: Avoid nephrotoxins. Continue to hold losartan. Continue to monitor renal function and urine output.
--- NOTE | 2022-05-23 11:31 | P.PN ---
Subjective Progress Note Date: 05/23/22 CHIEF COMPLAINT: Cholecystitis HISTORY OF PRESENT ILLNESS: Patient is postop day #3 status post laparoscopic cholecystectomy. Patient reports his pain is controlled. Denies any nausea or vomiting. He is having bowel movements. Tolerating diet. Afebrile. He has been up and ambulating. No new labs for today. BRITTANEI drain with 120 mL serosanguineous output yesterday PHYSICAL EXAM: VITAL SIGNS: Reviewed. GENERAL: Well-developed in no acute distress. HEENT: No sclera icterus. Extraocular movements grossly intact. Moist buccal mucosa. Head is atraumatic, normocephalic. ABDOMEN: Soft. Nondistended. Incision sites clean dry and intact. BRITTANIE drain with serosanguineous output. NEUROLOGIC: Alert and oriented. Cranial nerves II through XII grossly intact. ASSESSMENT: 1. Acute purulent cholecystitis with empyema of gallbladder status post laparoscopic cholecystectomy PLAN: -Patient can be discharged from surgical standpoint -Agree with discharge antibiotics per infectious disease -Continue BRITTANIE drain at discharge Physician Field Technical Specialist note has been reviewed by physician. Signing provider agrees with the documented findings, assessment, and plan of care. Objective - Vital Signs Vital signs: Vital Signs Temp 97.5 F L 05/23/22 07:10 Pulse 50 L 05/23/22 07:10 Resp 17 05/23/22 07:10 BP 108/61 05/23/22 07:10 Pulse Ox 97 05/23/22 07:10 FiO2 Intake & Output 05/22/22 05/23/22 05/23/22 18:59 06:59 18:59 Output Total 100 20 Balance -100 -20 Output: Drainage 100 20 Abdomen 100 20 Other: Voiding Method Toilet # Voids 2 1 - Labs CBC & Chem 7: 05/22/22 04:21 05/22/22 04:21 Labs: Abnormal Lab Results - Last 24 Hours (Table) 05/22/22 05/22/22 05/22/22 Range/Units 11:18 16:50 21:22 POC Glucose (mg/dL) 133 H 188 H 173 H (70-110) mg/dL 05/23/22 Range/Units 06:12 POC Glucose (mg/dL) 135 H (70-110) mg/dL Microbiology - Last 24 Hours (Table) 05/18/22 15:00 Blood Culture - Preliminary Blood No Growth after 96 hours 05/18/22 14:57 Blood Culture - Preliminary Blood No Growth after 96 hours 05/19/22 20:36 Gram Stain - Final Sputum Sputum Culture - Final Violet albicans
[2022-05-23 11:45] LABS: Glucose,Whole Blood 172 mg/dL (70-110)
--- NOTE | 2022-05-23 14:04 | CDI ---
Documentation Clarification Form Date: 05/23/2022 2:00:00 PM From: Dee Wong RN, CCDS Admit Date: 05/18/2022 5:00:00 PM Patient Name: Vinicio Lucas Visit Number: [id number] Discharge Date: ATTENTION: The Clinical Documentation Specialists (CDI) and [facility] Coding Staff appreciate your assistance in clarifying documentation. Please respond to the clarification below the line at the bottom and electronically sign. The CDI & [facility] Coding staff will review the response and follow-up if needed. Please note: Queries are made part of the Legal Health Record. If you have any questions, please contact the author of this message via ITS. Dr. River Connelly Sepsis is documented in the H/P and subsequent progress notes. The above clinical indicators are also present. Please document if this patient has: Past Medical History: Diabetes Mellitus, Hyperlipidemia, Hypertension, Prostate Cancer Thyroid Disorder 76-year-old male present with complaint of fever and difficult breathing. The abdominal CT scan reveal evidence of cholelithiasis. In the ER Vital signs Temp 103.8 pulse 92 respiration 18 blood 120/49 pulse 99 % on 15 % nonrebreather mask, subsequent blood pressure dropped to 75/40. 05/18 Labs: 6.0 HGB10.1 Lactic acid 2.5, UA: Ur small Leukocyte Esterase 05/19 Labs: WBC 10.1 Procalcitonin >100.00 Treatment: Telemetry Monitoring Monitor VS, O2 Sat's .9NS 500 MLS Bolus x3 Is there an additional diagnosis that is clinically appropriate for this patient? [ ] Severe Sepsis with septic shock [ ] Other condition (please specify) [ ] Clinically unable to determine [ ] Unknown Acute sepsis, as evidenced by fever of 103.8 on presentation, elevated lactic acid at 2.5, and hypotension, secondary to acute cholecystitis Dictated By: Franchesca Angeles Signed By: <Electronically signed by Franchesca BUSBY> 05/24/22 0629 MTDBlaine
[2022-05-23 14:34] VITALS: BP 94/55; PULSE 74; RESP 18; TEMP 97.8
--- NOTE | 2022-05-24 06:29 | P.DS ---
Providers Date of admission: 05/18/22 17:00 Expected date of discharge: 05/23/22 Attending physician: River Connelly Consults: 05/19/22 08:19 Consult Physician Routine Consulting Provider: Rani Baptiste Consult Reason/Comments: fever Do you want consulting provider notified?: Yes 05/19/22 08:20 Consult Physician Routine Consulting Provider: Steve Kwon Consult Reason/Comments: shortness of breath Do you want consulting provider notified?: Yes 05/19/22 11:06 Consult Physician Urgent Consulting Provider: Angelica Lopez Consult Reason/Comments: CKD-known pt Do you want consulting provider notified?: Yes 05/20/22 09:43 Consult Physician Routine Consulting Provider: Uche Garcia Consult Reason/Comments: Acute cholecystitis, fever Do you want consulting provider notified?: Already Contacted Primary care physician: River Connelly [facility] Course: Final diagnosis Acute sepsis, as evidenced by fever of 103.8 on presentation, elevated lactic acid at 2.5, and hypotension, secondary to acute cholecystitis Acute cholecystitis. Status post lap cholecystectomy on 05/20/2022 Acute on chronic renal failure Evidence of urinary tract infection, present on admission hypertension hyperlipidemia hypothyroidism [id number] diabetes mellitus history of prostate cancer with previous surgery Underlying history of cardiac arrhythmia was history of pacemaker placement No code Discharge disposition Patient is being discharged in a stable condition with guarded prognosis to home. Patient will follow-up with Dr. Connelly in the outpatient setting upon discharge. Patient is to follow-up with general surgery outpatient as scheduled. Total time taken is greater than 35 minutes. Hospital course This is a 76-year-old male who was recently admitted with abdominal pain features of sepsis being closely monitored. Patient was found to have acute cholecystitis and underwent laparoscopic cholecystectomy with general surgery. Patient also being followed by infectious disease continue on oral antibiotics for short course. Patient has been cleared by consultations for discharge and patient would like to go home today. Please refer to other consultation notes for further HPI. Currently no reports of chest pain, shortness of breath, or palpitations. Patient is afebrile. No reports of nausea or vomiting and patient is tolerating diet. Patient will be discharged home today. Guarded prognosis Physical exam: Gen: This is a 76-year-old male who is awake, alert and oriented 3, well- developed, well-nourished, obese HEENT: Head is atraumatic, normocephalic. Pupils equal, round. Sclerae is anicteric. NECK: Supple. No JVD. No lymphadenopathy. No thyromegaly. LUNGS: Diminished breath sounds bilaterally with no wheezes or rhonchi. No inte rcostal retractions. HEART: S1, S2 are muffled ABDOMEN: Soft. Bowel sounds are present. Mildly tender on palpation No masses. EXTREMITIES: No pedal edema. No calf tenderness. NEUROLOGICAL: Patient is awake, alert and oriented x3. Cranial nerves 2 through 12 are grossly intact. Please refer to medication reconciliation sheet for a list of medications. The impression and plan of care has been dictated by Franchesca Angeles, Nurse Practitioner as directed. Dr. Kamron MD I have performed a history and examination and MDM of this patient, discussed the same with the dictator, and agree with the dictator's assessment and plan as written ,documented as a scribe. Based on total visit time, I have performed more than 50% of the visit. Patient Condition at Discharge: Fair Plan - Discharge Summary Discharge Rx Participant: No New Discharge Prescriptions: New Amoxic-Pot Clav 875-125Mg [Augmentin 875-125] 1 tab PO Q12HR 10 Days #20 tab Amoxic-Pot Clav 875-125Mg [Augmentin 875-125] 1 tab PO Q12HR 10 Days #20 tab Continue Aspirin 81 mg PO DAILY allopurinoL [Zyloprim] 300 mg PO DAILY Oxybutynin Chloride [Ditropan] 5 mg PO TID glipiZIDE [Glucotrol] 5 mg PO TID-W/MEALS atenoloL [Tenormin] 25 mg PO DAILY Omeprazole [PriLOSEC] 20 mg PO HS Imatinib Mesylate [Gleevec] 300 mg PO DAILY Levothyroxine Sodium [Synthroid] 88 mcg PO DAILY Pantoprazole Sodium [Protonix] 40 mg PO DAILY Cholecalciferol [Vitamin D3 (25 Mcg = 1000 Iu)] 50 mcg PO HS Cetirizine HCl [Zyrtec] 10 mg PO HS Ondansetron Odt [Zofran ODT] 4 mg PO Q6H PRN PRN Reason: Nausea And Vomiting HYDROcodone/APAP 7.5-325MG [Gautier 7.5-325] 1 tab PO Q6HR PRN PRN Reason: Pain Discontinued Losartan Potassium 100 mg PO DAILY Cefdinir [Omnicef] 300 mg PO BID Discharge Medication List Aspirin 81 mg PO DAILY 01/31/14 [History] allopurinoL [Zyloprim] 300 mg PO DAILY 01/31/14 [History] Oxybutynin Chloride [Ditropan] 5 mg PO TID 09/12/14 [History] glipiZIDE [Glucotrol] 5 mg PO TID-W/MEALS 04/24/18 [History] Cholecalciferol [Vitamin D3 (25 Mcg = 1000 Iu)] 50 mcg PO HS 11/17/20 [History] atenoloL [Tenormin] 25 mg PO DAILY 11/17/20 [History] Cetirizine HCl [Zyrtec] 10 mg PO HS 05/18/22 [History] HYDROcodone/APAP 7.5-325MG [Gautier 7.5-325] 1 tab PO Q6HR PRN 05/18/22 [History] Imatinib Mesylate [Gleevec] 300 mg PO DAILY 05/18/22 [History] Levothyroxine Sodium [Synthroid] 88 mcg PO DAILY 05/18/22 [History] Omeprazole [PriLOSEC] 20 mg PO HS 05/18/22 [History] Ondansetron Odt [Zofran ODT] 4 mg PO Q6H PRN 05/18/22 [History] Pantoprazole Sodium [Protonix] 40 mg PO DAILY 05/18/22 [History] Amoxic-Pot Clav 875-125Mg [Augmentin 875-125] 1 tab PO Q12HR 10 Days #20 tab 05/23/22 [Rx] Amoxic-Pot Clav 875-125Mg [Augmentin 875-125] 1 tab PO Q12HR 10 Days #20 tab 05/23/22 [Rx] Follow up Appointment(s)/Referral(s): River Connelly MD [Primary Care Provider] - 1-2 days (Office is unavailable at time of discharge. Pleae call for appointment.) Uche Garcia MD [STAFF PHYSICIAN] - 1 Week (Offfice is unavailable at time of discharge. Please call for appointment.) Ambulatory/Diagnostic Orders: Complete Blood Count w/diff [LAB.AMB] Time Frame: 3 Days, Location: None Selected Patient Instructions/Handouts: *Surgery [facility] - Laparoscopic Cholecystectomy Discharge Instructions, Reggie-Alonso Drain Care (ED), Reggie-Alonso Drain Care (DC), Reggie-Alonso Drain Care (GEN) Activity/Diet/Wound Care/Special Instructions: Activity Limited until follow-up Follow-up with primary care provider on discharge Follow-up surgery outpatient in one week Continue current diet Monitor blood sugars and keep a diary of all readings Discharge Disposition: HOME SELF-CARE
--- NOTE | 2022-05-27 18:52 | P.PN ---
Subjective Progress Note Date: 05/23/22 Principal diagnosis: Fever/cholecystitis Patient is a 76-year-old male with a past medical his significant for diabetes mellitus hypertension hyperlipidemia sleep apnea CML presenting to the ER for evaluation of increasing shortness of breath, initially concern for poss ible pneumonia subsequently the patient did have a abnormal ultrasound suspicious for cholecystitis Gen. surgery has seen the patient patient is status post cholecystectomy 05/20/2022 with evidence of empyema of the gallbladder On today's evaluation head that is 05/23/2022, the patient remains to be afebrile, the patient is breathing comfortably on room air, the patient denies having any chest pain or shortness of breath, the patient did have occasional dry cough, the patient abdominal pain has decreased in intensity no nausea no vomiting no abdominal pain or diarrhea Objective - Vital Signs Vital signs: Vital Signs Temp 97.5 F L 05/23/22 07:10 Pulse 50 L 05/23/22 07:10 Resp 17 05/23/22 07:10 BP 108/61 05/23/22 07:10 Pulse Ox 97 05/23/22 07:10 FiO2 Intake & Output 05/22/22 05/23/22 05/23/22 18:59 06:59 18:59 Output Total 100 20 Balance -100 -20 Output: Drainage 100 20 Abdomen 100 20 Other: Voiding Method Toilet # Voids 2 1 - Exam GENERAL DESCRIPTION: An elderly male lying in bed in no distress RESPIRATORY SYSTEM: Unlabored breathing , decreased breath sounds at bases HEART: S1 S2 regular rate and rhythm , ABDOMEN: Soft , no tenderness EXTREMITIES: No edema feet - Labs CBC & Chem 7: 05/22/22 04:21 05/22/22 04:21 Labs: Abnormal Lab Results - Last 24 Hours (Table) 05/22/22 05/22/22 05/23/22 Range/Units 16:50 21:22 06:12 POC Glucose (mg/dL) 188 H 173 H 135 H (70-110) mg/dL Microbiology - Last 24 Hours (Table) 05/18/22 15:00 Blood Culture - Preliminary Blood No Growth after 96 hours 05/18/22 14:57 Blood Culture - Preliminary Blood No Growth after 96 hours 05/19/22 20:36 Gram Stain - Final Sputum Sputum Culture - Final Violet albicans Assessment and Plan (1) Cholecystitis Status: Acute Code(s): K81.9 - CHOLECYSTITIS, UNSPECIFIED SNOMED Code(s): 35020381 Plan: 1patient presented to hospital with fever some mental status changes also increasing shortness of breath and cough chest x-ray did show some haziness did not mention any consolidation the patient also was complaining of abdominal pain to the other facility with the patient did have a CT that was negative for any cholecystitis however ultrasound here is suspicious for cholecystitis patient is status post laparoscopic cholecystectomy 05/20/2022 with evidence of empyema of the gallbladder 2patient seemed to have shown clinical improvement and patient has been insisting on going home, antibiotic has been switched over to oral Augmentin prescription sent to the pharmacy to close outpatient follow-up Time with Patient: Less than 30
== END 2022-05-23 15:00 | disposition home or self-care (01) | DRG 853 ==
LOC: EC 14:28 → 4SSUR 17:00 → 3SCARD 20:14 → 4SSUR 05-20 21:15
PROVIDERS: ADMIT Internal Medicine; ATTEND Internal Medicine
PROC: 0FT44ZZ Resection of Gallbladder, Percutaneous Endoscopic Approach (ICD-10-PCS; principal; 2022-05-20 07:30)
DX: A41.9 Sepsis, unspecified organism (principal); N17.0 Acute kidney failure with tubular necrosis; E87.20 Acidosis, unspecified; C92.10 Chronic myeloid leukemia, BCR/ABL-positive, not having achieved remission; K80.00 Calculus of gallbladder with acute cholecystitis without obstruction; N39.0 Urinary tract infection, site not specified; E03.9 Hypothyroidism, unspecified; E11.22 Type 2 diabetes mellitus with diabetic chronic kidney disease; E78.5 Hyperlipidemia, unspecified; Z20.822 Contact with and (suspected) exposure to COVID-19; Z66 Do not resuscitate; Y90.1 Blood alcohol level of 20-39 mg/100 ml; G47.33 Obstructive sleep apnea (adult) (pediatric); I12.9 Hypertensive chronic kidney disease with stage 1 through stage 4 chronic kidney disease, or unspecified chronic kidney disease; I45.10 Unspecified right bundle-branch block; M10.9 Gout, unspecified; D63.1 Anemia in chronic kidney disease; I44.0 Atrioventricular block, first degree; R65.20 Severe sepsis without septic shock; N18.32 Chronic kidney disease, stage 3b; R09.02 Hypoxemia; Z79.82 Long term (current) use of aspirin; Z79.84 Long term (current) use of oral hypoglycemic drugs; Z79.890 Hormone replacement therapy; Z79.899 Other long term (current) drug therapy; Z85.46 Personal history of malignant neoplasm of prostate; Z95.0 Presence of cardiac pacemaker; Z90.79 Acquired absence of other genital organ(s); Z71.3 Dietary counseling and surveillance; Z91.011 Allergy to milk products; Z91.018 Allergy to other foods
CPT/HCPCS: 36415; 71046; 76700; 80053; 81001; 82150; 83036; 83605; 83690; 83880; 84145; 85025; 85379; 85610; 85730; 87040; 87070; 87086; 87205; 87636; 88304; 93005; 93970; 94760; 96360; 96361; 99285